=== PATIENT | male | born 1960 | race African-American/Black ===

== ENCOUNTER 2016-11-22 07:38 | Emergency (ER) | payer OTHER ==
[2016-11-22] MEDS ORDERED: NS 0.9% 1000 ML* 1,000 ML IV ONE (08:22)
[2016-11-22] MEDS ORDERED: Ondansetron INJ* 2 MG/ML VIAL IV ONE (08:22)
[2016-11-22] MEDS ORDERED: Morphine INJ* 4 MG/ML 1 ML CARPUJECT IV ONE (08:22)
[2016-11-22 08:41] LABS: Urine Bilirubin Negative (Negative); Urine Glucose Negative (Negative); Urine Nitrite Negative (Negative)
[2016-11-22 08:48] LABS: Hematocrit 40 % (42-52); Hemoglobin 13.3 g/dl (14.0-18.0); Mean Corpuscular HGB Conc 33 g/dl (31-36); Mean Corpuscular Hemoglobin 31 pg (27-31); Mean Corpuscular Volume 93 fL (80-94); Mean Platelet Volume 8 um3 (7.4-10.4); Red Blood Count 4.29 10^6/ul (4.0-5.4); Red Cell Distribution Width 14 % (10.5-15); White Blood Count 3.6 10^3/ul (3.5-10.8)
[2016-11-22 09:07] LABS: ALT 14 U/L (7-52); Albumin 3.8 g/dL (3.2-5.2); Alkaline Phosphatase 44 U/L (34-104); BUN/Creatinine Ratio 15.1 (8-20); Blood Urea Nitrogen 11 mg/dL (6-24); CO2 Carbon Dioxide 25 mmol/L (22-32); Calcium 8.8 mg/dL (8.6-10.3); Chloride 108 mmol/L (101-111); Globulin 2.5 g/dL (2-4); Glucose 100 mg/dL (70-100); Lipase 17 U/L (11.0-82.0); Sodium 136 mmol/L (133-145); Total Protein 6.3 g/dL (6.4-8.9)
[2016-11-22 09:13] LABS: Anion Gap 3 mmol/L (2-11)
--- NOTE | 2016-11-22 09:16 | RAD ---
Indication: Flank pain. CT of the abdomen and pelvis was performed without oral or IV contrast demonstration. Coronal and sagittal reconstructed images were obtained. Lung bases demonstrate no pleural fluid, nodules or masses. Heart demonstrates no pericardial effusion. Liver is normal in size. No focal lesions or intrahepatic ductal dilatation is noted. The gallbladder demonstrates no calcified gallstones. No pericholecystic fluid or wall thickening is identified. The spleen is normal in size. The pancreas demonstrates no mass or pancreatic duct dilatation. No adrenal lesions are noted. The kidneys demonstrate no hydronephrosis in either kidney. No dilated loops of bowel are noted. The retroperitoneal adenopathy is noted. CT of pelvis demonstrates diffuse wall thickening of the urinary bladder. No hernias are noted. Underlying urinary tract infection should be considered. IMPRESSION: No evidence of obstructive uropathy is noted. Diffuse wall thickening of the urinary bladder which is nonspecific.
[2016-11-22 11:09] VITALS: BP 129/91
--- NOTE | 2016-11-22 11:35 | ED ---
Selwyn Pelaez Angela, scribed for Fausto Lopez MD on 11/22/16 at 0815 . Back Pain - HPI Summary HPI Summary: This pt is a 56 y/o male presenting to [facility] c/o bilateral flank pain associated with hematuria and dysuria x1 week. Pt reports his pain is non- radiating and rates it 7 out of 10 in severity. He states his pain is now more constant and is aggravated when lifting things. Pt denies fever, chills. He denies a PMHx of kidney stones. Pt is a current smoker, cigars. 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 - History of Current Complaint Chief Complaint: EDFlankPain Stated Complaint: FLANK PAIN BOTH SIDES Time Seen by Provider: 11/22/16 08:01 Hx Obtained From: Patient Onset/Duration: Lasting Days Onset/Duration: Started Days Ago, Still Present Timing: Constant Back Pain Location: Is Discrete @ - bilateral flanks Pain Intensity: 7 Pain Scale Used: 0-10 Numeric Aggravating Symptom(s): Lifting Alleviating Symptom(s): Nothing Associated Signs And Symptoms: Positive: Flank Pain, Other - hematuria and dysuria - Allergies/Home Medications Allergies/Adverse Reactions: Allergies Allergy/AdvReac Type Severity Reaction Status Date / Time No Known Allergies Allergy Verified 11/22/16 10:33 Home Medications: Home Medications Albuterol HFA INHALER* [Ventolin HFA Inhaler*] 2 puff INH Q4H PRN 11/22/16 [ History Confirmed 11/22/16] PMH/Surg Hx/FS Hx/Imm Hx Endocrine/Hematology History: Denies: Hx Diabetes, Hx Thyroid Disease Cardiovascular History: Denies: Hx Hypertension Respiratory History: Reports: Hx Asthma Denies: Hx Chronic Obstructive Pulmonary Disease (COPD) GI History: Denies: Hx Ulcer Infectious Disease History: Denies: Hx Hepatitis, Hx Human Immunodeficiency Virus (HIV), Traveled Outside the [place] in Last 30 Days - Family History Known Family History: Positive: Other - Colon cancer - father - Social History Alcohol Use: None Substance Use Type: Reports: None Smoking Status (MU): Former Smoker Type: Cigarettes Have You Smoked in the Last Year: No Review of Systems Negative: Fever, Chills ENT: Negative Negative: Palpitations, Chest Pain Negative: Shortness Of Breath Negative: Abdominal Pain, Vomiting, Nausea Positive: dysuria, flank pain - bilateral, hematuria Musculoskeletal: Negative Skin: Negative Neurological: Negative All Other Systems Reviewed And Are Negative: Yes Physical Exam Triage Information Reviewed: Yes Vital Signs On Initial Exam: Initial Vitals Temp Pulse Resp BP Pulse Ox 97.3 F 65 15 126/79 98 11/22/16 07:40 11/22/16 07:40 11/22/16 07:40 11/22/16 07:40 11/22/16 07:40 Vital Signs Reviewed: Yes Appearance: Positive: Well-Appearing, No Pain Distress Skin: Positive: Warm, Skin Color Reflects Adequate Perfusion Head/Face: Positive: Normal Head/Face Inspection Eyes: Positive: EOMI ENT: Positive: Normal ENT inspection Neck: Positive: Nontender Respiratory/Lung Sounds: Positive: Clear to Auscultation, Breath Sounds Present Cardiovascular: Positive: RRR. Negative: Murmur Abdomen Description: Positive: Nontender Musculoskeletal: Positive: Normal, Strength/ROM Intact Neurological: Positive: Sensory/Motor Intact, Alert, Oriented to Person Place, Time, CN Intact II-III Psychiatric: Positive: Normal - Oanh Coma Scale Best Eye Response: 4 - Spontaneous Best Motor Response: 6 - Obeys Commands Best Verbal Response: 5 - Oriented Diagnostics - Vital Signs Vital Signs Temp Pulse Resp BP Pulse Ox 11/22/16 07:40 97.3 F 65 15 126/79 98 - Laboratory Lab Results: Lab Results 11/22/16 Range/Units 08:20 Urine Color Straw Urine Appearance Clear Urine pH 8.0 (5-9) Ur Specific [place] 1.005 L (1.010-1.030) Urine Protein Negative (Negative) Urine Ketones Negative (Negative) Urine Blood Negative (Negative) Urine Nitrate Negative (Negative) Urine Bilirubin Negative (Negative) Urine Urobilinogen Negative (Negative) Ur Leukocyte Esterase Negative (Negative) Urine Glucose Negative (Negative) Result Diagrams: 11/22/16 08:31 11/22/16 09:15 Lab Statement: Any lab studies that have been ordered have been reviewed, and results considered in the medical decision making process. - CT Abdomen/Pelvis CT CT Interpretation: No Acute Changes - IMPRESSION: No evidence of obstructive uropathy is noted. Diffuse wall thickening of the urinary bladder which is nonspecific. ED physician has reviewed this radiology report and agrees. CT Interpretation Completed By: Radiologist Back Pain Course/Dx - Course Assessment/Plan: Pt is a 56 y/o male presenting to [facility] c/o bilateral flank pain associated with hematuria and dysuria x1 week. In the ED course, pt was given IV fluids, morphine, and zofran. Abdomen/pelvis CT shows no evidence of obstructive uropathy. Diffuse wall thickening of the urinary bladder which is nonspecific. UA is negative. - Diagnoses Provider Diagnoses: Bladder wall thickening, Flank pain - Provider Notifications Discussed Care Of Patient With: Ej Forbes - MARCI Forbes and he will see patient in follow up in office. Time Discussed With Above Provider: 11:02 Discharge - Discharge Plan Condition: Good Disposition: HOME Patient Education Materials: Hematuria (ED) Referrals: Magi Coreas MD [Primary Care Provider] - Ej Forbes MD [Medical Doctor] - 2 Days The documentation as recorded by the Selwyn wilson Angela accurately reflects the service I personally performed and the decisions made by , Fausto Lopez MD.
== END 2016-11-22 11:11 | disposition home or self-care (01) ==
LOC: ED 07:38
DX: R10.9 Unspecified abdominal pain (principal); N32.9 Bladder disorder, unspecified; F17.299 Nicotine dependence, other tobacco product, with unspecified nicotine-induced disorders; J45.909 Unspecified asthma, uncomplicated
CPT/HCPCS: 36415; 74176; 80053; 81003; 83690; 85025; 96360; 96374; 96375; 99282; J2270; J2405

== ENCOUNTER 2017-01-31 18:45 | Emergency (ER) | payer OTHER ==
[2017-01-31 18:51] VITALS: BP 119/80
--- NOTE | 2017-01-31 19:08 | UC ---
Throat Pain/Nasal Scott HPI - HPI Summary HPI Summary: ST and cough starting about 3 days ago. Has also noticed wheezing and increased need for his inhaler. Girlfriend has similar symptoms. Denies fever. - History of Current Complaint Hx Obtained From: Patient Onset/Duration: Gradual Onset, Lasting Days Severity: Moderate Cough: Nonproductive Associated Signs & Symptoms: Positive: Wheezing. Negative: Nasal Discharge, Fever, Vomiting <Eliane Rothman - Last Filed: 01/31/17 19:03> <Feli Delaney - Last Filed: 01/31/17 19:30> - History of Current Complaint Chief Complaint: UCRespiratory Stated Complaint: THROAT PAIN Time Seen by Provider: 01/31/17 18:50 - Allergies/Home Medications Allergies/Adverse Reactions: Allergies Allergy/AdvReac Type Severity Reaction Status Date / Time No Known Allergies Allergy Verified 01/31/17 18:51 Home Medications: Home Medications Baclofen TAB* [Lioresal TAB*] 5 mg PO Q8H PRN 01/31/17 [History Confirmed ] Fluticasone Propionate (Inhala [Armonair Respiclick 55] 01/31/17 [History] LoraTADine TAB(NF) [Claritin 10 MG TAB(NF)] 10 mg PO DAILY 01/31/17 [History Confirmed 01/31/17] Oxycodone HCl 5 mg PO QID PRN 01/31/17 [History Confirmed 01/31/17] Sildenafil Citrate [Viagra] 100 mg PO 01/31/17 [History] PMH/Surg Hx/FS Hx/Imm Hx Respiratory History: Asthma - Surgical History Surgical History: Yes Surgery Procedure, Year, and Place: hemmoriodectomy - Family History Known Family History: Positive: Other - Colon cancer - father - Social History Lives: With Family Alcohol Use: Occasionally Substance Use Type: None Smoking Status (MU): Former Smoker Type: Cigarettes Have You Smoked in the Last Year: No <Eliane Rothman - Last Filed: 01/31/17 19:03> Review of Systems Constitutional: Negative Skin: Negative Eyes: Negative ENT: Sore Throat Respiratory: Cough Cardiovascular: Negative Gastrointestinal: Negative Genitourinary: Negative Motor: Negative Neurovascular: Negative Musculoskeletal: Negative Neurological: Negative Psychological: Negative Is Patient Immunocompromised?: No All Other Systems Reviewed And Are Negative: Yes <Eliane Rothman - Last Filed: 01/31/17 19:03> Physical Exam Triage Information Reviewed: Yes Appearance: Well-Appearing, No Pain Distress, Well-Nourished Vital Signs: Initial Vital Signs Temp 97.8 F 01/31/17 18:48 Pulse 73 01/31/17 18:48 Resp 16 01/31/17 18:48 BP 119/80 01/31/17 18:48 Pulse Ox 96 01/31/17 18:48 Vital Signs Reviewed: Yes Eye Exam: Normal Eyes: Positive: Conjunctiva Clear ENT: Positive: Pharynx normal, TMs normal. Negative: Nasal congestion, Nasal drainage, Tonsillar swelling, Tonsillar exudate Dental Exam: Other - poor dentition, missing most teeth Neck exam: Normal Neck: Positive: Supple, Nontender, No Lymphadenopathy Respiratory: Positive: No respiratory distress, Wheezing, Expiration Cardiovascular Exam: Normal Cardiovascular: Positive: RRR, No Murmur Musculoskeletal Exam: Normal Neurological Exam: Normal Psychological Exam: Normal Skin Exam: Normal <Eliane Rothman - Last Filed: 01/31/17 19:03> Vital Signs: Initial Vital Signs Temp 97.8 F 01/31/17 18:48 Pulse 73 01/31/17 18:48 Resp 16 01/31/17 18:48 BP 119/80 01/31/17 18:48 Pulse Ox 96 01/31/17 18:48 <Feli Delaney - Last Filed: 01/31/17 19:30> Diagnostics - Laboratory Diagnostic Studies Completed/Ordered: RST negative <Eliane Rothman - Last Filed: 01/31/17 19:03> Throat Pain/Nasal Course/Dx - Differential Dx/Diagnosis Provider Diagnoses: pharyngitis <Eliane Rothman - Last Filed: 01/31/17 19:03> Discharge <Eliane Rothman - Last Filed: 01/31/17 19:03> <Feli Delaney - Last Filed: 01/31/17 19:30> - Discharge Plan Condition: Stable Disposition: HOME Prescriptions: Lidocaine 2% VISCOUS* [Xylocaine 2% Viscous*] 15 ml SWISH SPIT Q6H PRN #20 btl PRN Reason: Sore Throat Naproxen Sodium [Naproxen Sodium 500 MG TAB] 500 mg PO BID #14 tab Patient Education Materials: Pharyngitis (ED) Forms: *Gen. Provider Communication Referrals: Evin Gauthier, DIRECTOR OF PHYSIOTHERAPY SERVICES [Primary Care Provider] - Additional Instructions: Rapid strep negative. Given your other symptoms, I strongly suspect a respiratory virus. In this case, you may have increase coughing for another several days, and it can be 2-3 weeks before symptoms are completely gone. Come back or see your primary care doctor if you developing worsening difficulty breathing. Attestation Statement User Type: Provider - I was available for consult. This patient was seen by the LYDIA. The patient was not presented to, seen by, or examined by me. -Olivia <Feli Delaney - Last Filed: 01/31/17 19:30>
== END 2017-01-31 19:25 | disposition home or self-care (01) ==
LOC: UCEAST 18:45
DX: J02.9 Acute pharyngitis, unspecified (principal); R05 Cough; J45.909 Unspecified asthma, uncomplicated; Z87.891 Personal history of nicotine dependence
CPT/HCPCS: 87651; 99212; G0463

== ENCOUNTER → 2018-07-14 19:28 | Emergency (ER) | payer OTHER ==
--- NOTE | 2018-07-14 19:38 | ED ---
Substance Abuse/Use - HPI Summary HPI Summary: This patient is a 57 year old male brought in by ambulance to [facility] with a chief complaint of possible overdose since 1 hour ago. Patient was found passed out in an alleyway and EMS was called. Patient was given 2 doses of Narcan nasally to no relief. During transit, EMS administered narcan again and patient regained consciousness. Patient states that all he had was a couple of beers and did not take any other drugs. Patient states that he had a stomachache before and after passing out. When patient was found, EMS states that he was severely diaphoretic. - History Of Current Complaint Chief Complaint: EDSubstanceAbuse Stated Complaint: OVERDOSE, UNRESPONSIVE PER EMS Time Seen by Provider: 07/14/18 19:29 Hx Obtained From: Patient Ingestion History: Type/Name Of Drug - EtOH Overdose Characteristics: Oral Timing Of Abuse: Binge Use Severity Initially: Severe Severity Currently: Mild Character: Stuporous Aggravating Factor(s): Nothing Alleviating Factor(s): Nothing Associated Signs And Symptoms: Other: - diaphoretic - Allergies/Home Medications Allergies/Adverse Reactions: Allergies Allergy/AdvReac Type Severity Reaction Status Date / Time No Known Allergies Allergy Verified 01/31/17 18:51 PMH/Surg Hx/FS Hx/Imm Hx Previously Healthy: No Endocrine/Hematology History: Denies: Hx Diabetes, Hx Thyroid Disease Cardiovascular History: Denies: Hx Hypertension Respiratory History: Reports: Hx Asthma Denies: Hx Chronic Obstructive Pulmonary Disease (COPD) GI History: Denies: Hx Ulcer History: Denies: Hx Renal Disease - Surgical History Surgery Procedure, Year, and Place: hemmoriodectomy Infectious Disease History: Denies: Hx Hepatitis, Hx Human Immunodeficiency Virus (HIV) - Family History Known Family History: Positive: Other - Colon cancer - father - Social History Lives: Alone Alcohol Use: Occasionally Hx Substance Use: No Substance Use Type: Reports: None Hx Tobacco Use: Yes Smoking Status (MU): Former Smoker Type: Cigarettes Have You Smoked in the Last Year: No Review of Systems Positive: Skin Diaphoresis. Negative: Fever Positive: Syncope All Other Systems Reviewed And Are Negative: Yes Physical Exam - Summary Physical Exam Summary: Appearance: Well-appearing, Well-nourished, lying in bed comfortably Skin: Warm, dry, no obvious rash Eyes: sclera anicteric, no conjunctival pallor ENT: mucous membranes moist, pharynx appears normal Neck: Supple, nontender Respiratory: Clear to auscultation, no signs of respiratory distress Cardiovascular: Normal S1, S2. No murmurs. Normal distal pulses in tibial and radial bilaterally. Abdomen: Soft, nontender, normal active bowel sounds present Musculoskeletal: Normal, Strength/ROM Intact Neurological: A&Ox3, awake and alert, mentation is normal, speech is fluent and appropriate Psychiatric: affect is normal, does not appear anxious or depressed Triage Information Reviewed: Yes Vital Signs Reviewed: Yes Diagnostics - Laboratory Result Diagrams: 07/14/18 20:02 07/14/18 20:02 Lab Statement: Any lab studies that have been ordered have been reviewed, and results considered in the medical decision making process. Re-Evaluation - Re-Evaluation First Eval Re-Evaluation Time: 21:27 Change: Unchanged - The patient is requesting discharge at this time. He doesn' t alcohol level of 142, but clinically he is ambulating without any ataxia, answering questions appropriately, and appears chronically sober enough for discharge. Course/Dx - Course Course Of Treatment: This is a 57-year-old man apparently with a past history of substance abuse as he has had prior toxicology results showing opioids and cocaine. He was found passed out with poor respiratory effort and an alleyway adjacent to a local restaurant. Nasal Narcan did not have any effect, but IV Narcan resulted in improvement in his mental status. Patient continues to deny using any substances other than alcohol. He will be observed in the emergency department for an hour or 2 and anticipate discharge. We will get toxicology screening as he refuses to admit to opioid use, as well as alcohol level. Bloodwork Obtained. Urinalysis Obtained. Patient will be discharged with a dx of alcohol intoxication and opioid overdose. Patient is advised to follow up with PCP in 3 days. The patient is agreeable with this plan. - Diagnoses Provider Diagnoses: Alcohol intoxication, Opioid overdose Discharge - Sign-Out/Discharge Documenting (check all that apply): Patient Departure Patient Received Moderate/Deep Sedation with Procedure: No - Discharge Plan Condition: Good Disposition: HOME Patient Education Materials: Narcotic Safety (ED), Abuse of Alcohol (ED), Polysubstance Abuse (ED) Referrals: Evin Gauthier NP [Primary Care Provider] - [facility] [Outside] - Billing Disposition and Condition Condition: GOOD Disposition: Home - Attestation Statements Document Initiated by Radha: Yes Documenting Scribe: Jai Pfeiffer Provider For Whom Radha is Documenting (Include Credential): Emmanuel Day MD Scribguadalupe Attestation: Jai Pelaez scribed for Emmanuel Day MD on 07/15/18 at 0607. Scribe Documentation Reviewed: Yes Provider Attestation: The documentation as recorded by the Jai wilson accurately reflects the service I personally performed and the decisions made by meEmmanuel MD Status of Scribe Document: Viewed
[2018-07-14 20:09] LABS: ABS Eosinophils 0.2 10^3/ul (0-0.6); ABS Lymphocytes 1.4 10^3/ul (1.0-4.8); ABS Monocytes 0.6 10^3/ul (0-0.8); ABS Neutrophils 2.4 10^3/ul (1.5-7.7); Eosinophil % 3.5 %; Hematocrit 39 % (42-52); Hemoglobin 12.6 g/dL (14.0-18.0); Lymphocyte % 29.8 %; Mean Corpuscular HGB Conc 32 g/dL (31-36); Mean Corpuscular Hemoglobin 30 pg (27-31); Mean Corpuscular Volume 93 fL (80-94); Mean Platelet Volume 7.8 fL (7.4-10.4); Platelet Count 214 10^3/uL (150-450); Red Blood Count 4.18 10^6 /uL (4.18-5.48); Red Cell Distribution Width 13 % (10.5-15); White Blood Count 4.7 10^3/uL (3.5-10.8)
[2018-07-14 20:25] LABS: Albumin 4.2 g/dL (3.2-5.2); Albumin/Globulin Ratio 1.6 (1-3); BUN/Creatinine Ratio 8.3 (8-20); Calcium 8.9 mg/dL (8.6-10.3); EGFR African American 76.1 (>60); EGFR Non-African American 62.9 (>60); Globulin 2.6 g/dL (2-4); Potassium 3.7 mmol/L (3.5-5.0); Total Bilirubin 0.5 mg/dL (0.2-1.0); Total Protein 6.8 g/dL (6.4-8.9)
[2018-07-14 21:11] VITALS: BP 111/70
== END | disposition home or self-care (01) ==
LOC: ED 19:28
DX: F10.129 Alcohol abuse with intoxication, unspecified (principal); T40.2X1A Poisoning by other opioids, accidental (unintentional), initial encounter; T40.5X1A Poisoning by cocaine, accidental (unintentional), initial encounter; R55 Syncope and collapse; R61 Generalized hyperhidrosis; Y92.89 Other specified places as the place of occurrence of the external cause; J45.909 Unspecified asthma, uncomplicated; Z87.891 Personal history of nicotine dependence
CPT/HCPCS: 36415; 80053; 80320; 85025; 99282; G0480

== ENCOUNTER 2018-12-06 10:14 | Emergency (ER) | payer OTHER ==
[2018-12-06] MEDS ORDERED: NS 0.9% 1000 ML** 1,000 ML IV ONE (10:25)
[2018-12-06 10:52] LABS: ABS Monocytes 0.5 10^3/ul (0-0.8); ABS Neutrophils 4.9 10^3/ul (1.5-7.7); Eosinophil % 0.6 %; Hematocrit 39 % (42-52); Hemoglobin 12.8 g/dL (14.0-18.0); Lymphocyte % 15.3 %; Mean Corpuscular HGB Conc 33 g/dL (31-36); Mean Corpuscular Hemoglobin 31 pg (27-31); Mean Corpuscular Volume 94 fL (80-94); Mean Platelet Volume 7.5 fL (7.4-10.4); Platelet Count 245 10^3/uL (150-450); Red Cell Distribution Width 14 % (10-15); White Blood Count 6.5 10^3/uL (3.5-10.8)
[2018-12-06 10:57] LABS: Urine Appearance Clear; Urine Bacteria Absent (Absent); Urine Bilirubin Negative (Negative); Urine Blood 1+ (Negative); Urine Color Yellow; Urine Glucose Negative (Negative); Urine Ketones Trace (Negative); Urine Nitrite Negative (Negative); Urine Protein 1+(30 mg/dL) (Negative); Urine Red Blood Cell 3+(>10/hpf) (Absent); Urine Specific Gravity 1.026 (1.010-1.030); Urine Urobilinogen Negative (Negative); Urine White Blood Cell Trace(0-5/hpf) (Absent)
--- NOTE | 2018-12-06 11:01 | ED ---
GI/ HPI - HPI Summary HPI Summary: This patient is a 58 year old M arriving via ambulance from [facility] to [facility] a chief complaint of hematuria, left scrotal mass that is increasing in size and pain at the site of the mass, for several days to weeks, worsening today. Patient states that he has had a mass on left testicle since 01/30 which has since gotten worse. Patient states that today at 0900 he had new symptoms of hematuria at 0900, however he has had hematuria in the past evaluated by [facility] several years ago with no pathology identified. Patient states that he was worried with the new symptoms. The patient rates the pain 5/10 in severity. Pt has no PMH of renal calculi. Pt has past surgical hx of hemorrhoidectomy. Pt declines pain medication at this time. Symptoms aggravated by nothing. Symptoms alleviated by nothing. Patient reports hematuria , frequency, dysuria, burning with urination. Patient states his last BM was on 12/05/18. Patient denies nausea, vomiting, abdominal pain, hematemesis, hematochezia but he does have specks of blood in his stool "when he strains". Patient has history of heroin use. Patient states that he does not inject heroin. Patient states that he "sniffs" heroin. Pt states last heroin use was two days ago. Patient reports EtOH use and tobacco use. Pt is listed as taking Augmentin, however he has not taken a dose of this, as this was prescribed by [facility], and then pt was transferred to the ED. Last po intake was 12/05/18 pm. Pt was maintained NPO in the [facility]. Vital signs while in room: HR 75 bpm, BP 147/88, O2 sat 98% Allergies Allergy/AdvReac Type Severity Reaction Status Date / Time No Known Allergies Allergy Verified 01/31/17 18:51 Home Medications Medication Instructions Recorded Confirmed Type Amoxicillin/Clavulanate TAB* 875 mg PO Q12HR 12/06/18 12/06/18 History [Augmentin TAB 875*] - History of Current Complaint Chief Complaint: EDUrogenitalProblems Stated Complaint: TESTICULAR PAIN PER EMS Hx Obtained From: Patient, Other: - [facility] urgent care Onset/Duration: Started Days Ago, Still Present, Worse Since - today Timing: Constant Severity: Moderate Current Severity: Moderate Pain Intensity: 5 Additional Locations for Males: Scrotum - left, Testicles - left Pain Characteristics: Other: - "irritated" Pain Radiates to: Back - lumbar Associated Signs and Symptoms: Positive: Back Pain - lower back pain, Blood w/ Stool - specks, Hematuria, Dysuria, Other: - scrotal mass. Negative: Nausea Aggravating Factor(s): Nothing Alleviating Factor(s): Nothing - Allergy/Home Medications Allergies/Adverse Reactions: Allergies Allergy/AdvReac Type Severity Reaction Status Date / Time No Known Allergies Allergy Verified 01/31/17 18:51 Home Medications: Home Medications Amoxicillin/Clavulanate TAB* [Augmentin TAB 875*] 875 mg PO Q12HR 12/06/18 [ History Confirmed 12/06/18] PMH/Surg Hx/FS Hx/Imm Hx Previously Healthy: No Endocrine/Hematology History: Denies: Hx Diabetes, Hx Thyroid Disease Cardiovascular History: Denies: Hx Hypertension Respiratory History: Reports: Hx Asthma Denies: Hx Chronic Obstructive Pulmonary Disease (COPD) GI History: Denies: Hx Ulcer History: Denies: Hx Renal Disease - Surgical History Surgical History: Yes Surgery Procedure, Year, and Place: hemorrhoidectomy Infectious Disease History: No Infectious Disease History: Denies: Hx Hepatitis, Hx Human Immunodeficiency Virus (HIV), Traveled Outside the [place] in Last 30 Days - Family History Known Family History: Positive: Other - Colon cancer - father - Social History Alcohol Use: hx ETOH abuse Hx Substance Use: Yes Substance Use Type: Reports: Heroin - denies injection Substance Use Comment - Amount & Last Used: Pt denies Hx Tobacco Use: Yes Smoking Status (MU): Light Every Day Tobacco Smoker Type: Cigarettes Have You Smoked in the Last Year: No Review of Systems Negative: Fever, Chills, Skin Diaphoresis Cardiovascular: Negative Respiratory: Negative Positive: Other - occasional blood with stool, with straining. . Negative: Abdominal Pain, Vomiting, Nausea Positive: burning - with urination , dysuria, frequency, hematuria, pain - with urination Positive: Other - lower back pain Skin: Negative Neurological: Negative Psychological: Normal - no evidence of intoxication in the ED today All Other Systems Reviewed And Are Negative: Yes Physical Exam - Summary Physical Exam Summary: Appearance: well-appearing, moderate pain distress, well-nourished, no evidence of intoxication Skin: Warm, color reflects adequate perfusion, dry, no evidence of injection site on scrotum or in groin, and no track abreu on extremities, Scrotal mass see below Head: Normal Head/Face inspection, atraumatic Eyes: Conjunctiva clear ENT: Normal inspection Neck: Supple, no nodes, no JVD Respiratory: Lungs clear, normal breath sounds, no respiratory distress Cardio: RRR, No murmur, pulses normal, brisk capillary refill Abdomen: Soft, nontender, no masses, nondistended, no guarding, no rebound Bowel sounds: Present Musculoskeletal: Strength Intact/ROM intact, no calf tenderness, no edema. Psychological: Normal Neuro: Alert, muscle tone normal, no focal deficit GI/: Mass 5 cm in diameter and firm at top (base) of left scrotum, no fluctuance; mass is not red, or hot; no swelling of the scrotum, no masses palpable on testicles, 2+ femoral pulses bilaterally, exam chaperoned by Suzy from ultrasound Triage Information Reviewed: Yes Vital Signs On Initial Exam: Initial Vitals Temp Pulse Resp BP Pulse Ox 98.4 F 75 16 147/88 98 12/06/18 10:15 12/06/18 10:15 12/06/18 10:15 12/06/18 10:15 12/06/18 10:15 Vital Signs Reviewed: Yes Diagnostics - Vital Signs Vital Signs Temp Pulse Resp BP Pulse Ox 12/06/18 10:15 98.4 F 75 16 147/88 98 - Laboratory Lab Results: Lab Results 12/06/18 Range/Units 10:40 WBC 6.5 (3.5-10.8) 10^3/uL RBC 4.10 L (4.18-5.48) 10^6 /uL Hgb 12.8 L (14.0-18.0) g/dL Hct 39 L (42-52) % MCV 94 (80-94) fL MCH 31 (27-31) pg MCHC 33 (31-36) g/dL RDW 14 (10-15) % Plt Count 245 (150-450) 10^3/uL MPV 7.5 (7.4-10.4) fL Neut % (Auto) 75.5 % Lymph % (Auto) 15.3 % [place] % (Auto) 7.9 % Eos % (Auto) 0.6 % Baso % (Auto) 0.7 % Absolute Neuts (auto) 4.9 (1.5-7.7) 10^3/ul Absolute Lymphs (auto) 1.0 (1.0-4.8) 10^3/ul Absolute Monos (auto) 0.5 (0-0.8) 10^3/ul Absolute Eos (auto) 0.0 (0-0.6) 10^3/ul Absolute Basos (auto) 0.0 (0-0.2) 10^3/ul Absolute Nucleated RBC 0.0 10^3/ul Nucleated RBC % 0.0 Result Diagrams: 12/06/18 10:40 12/06/18 10:40 Lab Statement: Any lab studies that have been ordered have been reviewed, and results considered in the medical decision making process. - Ultrasound Testicular US Ultrasound Interpretation Completed By: Radiologist Summary of Ultrasound Findings: Testicular US reveals, per radiologist, IMPRESSION: Multiloculated cystic lesion in the area of the palpable mass at the base of the scrotum suspicious for abscess and infection. No intratesticular masses are noted. ED Physician has reviewed this report. Re-Evaluation - Re-Evaluation First Eval Re-Evaluation Time: 12:20 Change: Unchanged Comment: Dr. Mayo discussed plans with patient. Remains looking comfortable. Patient states his pain is still a 3 or 4 and continues decline pain medication. Patient is advised of transfer as well as antiobotics to be infused. Patient is agreeable with this plan. Second Eval Re-Evaluation Time: 14:15 Change: Worse Comment: Pt c/o increased pain. Would like pain medication at this time. Will continue to avoid narcotics. Will give ketorolac 30mg IV x 1. GIGU Course/Dx - Course Course Of Treatment: This patient is a 58 year old M arriving via ambulance from [facility] to [facility] a chief complaint of mass in his "testicle" that is enlarging in size and more painful for the past few days, worse today and hematuria. Patient states that he has had a mass on left testicle since 11/22 which has since gotten worse. Pt is afebrile, with no signs of sepsis. Testicular US reveals, per radiologist, IMPRESSION: Multiloculated cystic lesion in the area of the palpable mass at the base of the scrotum suspicious for abscess and infection. No intratesticular masses are noted. ED Physician has reviewed this report. Pt with hx heroin abuse but with no evidence of injection near or at the site of scrotal mass, and no sign of intoxication in the ED at this time. 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 Patient will be transferred. Pt was given Clindamycin 900mg IV x 1 in the ED. He has no known hx of MRSA. He has been maintained NPO in the ED. Last po intake was 12/05/18 pm. Pt will be transferred via EMS with IV in place with NS at 200ml/hr. The patient is agreeable with this plan. - Diagnoses Differential Diagnoses - Male: Cancer, Neoplasm, Testicular Torsion, Other - abscess Provider Diagnoses: Scrotal mass, Hematuria, Heroin abuse - Critical Care Time Critical Care Time: 30-74 min - 30 mins Discharge ED - Sign-Out/Discharge Documenting (check all that apply): Patient Departure - transfer to facility with urology Patient Received Moderate/Deep Sedation with Procedure: No - Discharge Plan Condition: Stable Disposition: TRANS HIGHER LVL OF CARE FAC Referrals: Evin Gauthier NP [Primary Care Provider] - - Billing Disposition and Condition Condition: STABLE Disposition: Trans Higher Lvl of Care Fac - Attestation Statements Document Initiated by Scribe: Yes Documenting Scribe: Dionna Vazquez Provider For Whom Juddibe is Documenting (Include Credential): Dr. Carolyn Mayo MD Scribe Attestation: Dionna Pelaez scribed for Dr. Carolyn Mayo MD on 12/06/18 at 1417. Scribe Documentation Reviewed: Yes Provider Attestation: The documentation as recorded by the Dionna wilson accurately reflects the service I personally performed and the decisions made by me, Dr. Carolyn Mayo MD Status of Scribe Document: Viewed
[2018-12-06 11:06] LABS: ALT 13 U/L (7-52); AST 22 U/L (13-39); Albumin 4.4 g/dL (3.2-5.2); Albumin/Globulin Ratio 1.6 (1-3); Alkaline Phosphatase 63 U/L (34-104); Anion Gap 6 mmol/L (2-11); BUN/Creatinine Ratio 16.9 (8-20); Blood Urea Nitrogen 14 mg/dL (6-24); C Reactive Protein < 1.00 mg/L (<8.01); CO2 Carbon Dioxide 29 mmol/L (22-32); Calcium 9.6 mg/dL (8.6-10.3); Chloride 106 mmol/L (101-111); EGFR Non-African American 95.8 (>60); Globulin 2.8 g/dL (2-4); Glucose 115 mg/dL (70-100); Potassium 3.9 mmol/L (3.5-5.0); Sodium 141 mmol/L (135-145); Total Protein 7.2 g/dL (6.4-8.9)
[2018-12-06] MEDS ORDERED: Clindamycin 900 MG IVPREMIX(* 900 MG/50 ML SDV IV ONE (12:21)
[2018-12-06 14:14] VITALS: BP 147/97
[2018-12-06] MEDS ORDERED: Ketorolac INJ* 30 MG/ML 1 ML VIAL IV ONE (14:16)
== END 2018-12-06 14:53 | disposition short-term general hospital (02) ==
LOC: ED 10:14
DX: N50.89 Other specified disorders of the male genital organs (principal); R31.9 Hematuria, unspecified; R30.0 Dysuria; R35.0 Frequency of micturition; M54.5 Low back pain; F11.10 Opioid abuse, uncomplicated; F17.210 Nicotine dependence, cigarettes, uncomplicated
CPT/HCPCS: 36415; 76870; 80053; 81003; 81015; 83605; 85025; 86140; 87086; 96361; 96374; 99283; J1885

== ENCOUNTER 2018-12-19 19:06 | Emergency (ER) | payer OTHER ==
[2018-12-19 20:56] LABS: ABS Basophils 0.1 10^3/ul (0-0.2); ABS Eosinophils 0.1 10^3/ul (0-0.6); ABS Lymphocytes 1.8 10^3/ul (1.0-4.8); ABS Monocytes 0.6 10^3/ul (0-0.8); ABS Neutrophils 2.1 10^3/ul (1.5-7.7); Hematocrit 38 % (42-52); Hemoglobin 12.5 g/dL (14.0-18.0); Lymphocyte % 38.1 %; Mean Corpuscular HGB Conc 33 g/dL (31-36); Mean Corpuscular Hemoglobin 31 pg (27-31); Mean Corpuscular Volume 95 fL (80-94); Mean Platelet Volume 7.6 fL (7.4-10.4); Platelet Count 220 10^3/uL (150-450); Red Blood Count 3.98 10^6 /uL (4.18-5.48); Red Cell Distribution Width 14 % (10-15); White Blood Count 4.7 10^3/uL (3.5-10.8)
[2018-12-19 21:16] LABS: ALT 14 U/L (7-52); AST 28 U/L (13-39); Albumin 4.2 g/dL (3.2-5.2); Albumin/Globulin Ratio 1.8 (1-3); Alkaline Phosphatase 60 U/L (34-104); Anion Gap 3 mmol/L (2-11); BUN/Creatinine Ratio 12.2 (8-20); Blood Urea Nitrogen 12 mg/dL (6-24); C Reactive Protein < 1.00 mg/L (<8.01); CO2 Carbon Dioxide 33 mmol/L (22-32); Calcium 9.3 mg/dL (8.6-10.3); Chloride 105 mmol/L (101-111); EGFR African American 95.7 (>60); EGFR Non-African American 79.1 (>60); Globulin 2.4 g/dL (2-4); Glucose 85 mg/dL (70-100); Potassium 4.5 mmol/L (3.5-5.0); Sodium 141 mmol/L (135-145); Total Protein 6.6 g/dL (6.4-8.9)
--- OUTSIDE RECORDS SUMMARY | 2018-12-19 21:25 | XMS REPORT | Continuity of Care Document ---
:1960 External Reference #:[id number] Author Name Christian Naik M.D. 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 Onset: 03/2018 Digestive symptom Jordan Pfeiffer MD Onset: 01/12/2017 Abdominal pain Jordan Pfeiffer MD Onset: 01/12/2017 Social History Type Date Description Comments Sex Unknown Smokeless Tobacco Never Used Smokeless Tobacco ETOH Use Denies alcohol use Recreational Drug Use Denies Drug Use Tobacco Use Start: Unknown Light tobacco smoker (10 or fewer cigarettes/day) Smoking Status Reviewed: 12/12/18 Light tobacco smoker (10 or fewer cigarettes/day) Allergies, Adverse Reactions, Alerts Description No Known Drug Allergies Medications Active Medications SIG Qnty Indications Ordering Date Provider Endocet every 4 to 6 14tabs Gumaro, 12/12/2018 5-325mg Tablets hours as needed Jillian Gonzales for pain Vaseline Petrolatum as needed 1units Gumaro, 12/12/2018 Jeremiah Gonzales M.D. 1"X36" Pads Omeprazole 1 tab by mouth 90caps R10.9 Jordan Pfeiffer MD 01/12/[address] every day every morning Oxycodone HCL 1 tab by Unknown 5mg Capsules mouthevery 4-6 hour as needed postop pain Cyclobenzaprine HCL 1-2 tabs by mouth Unknown 5mg every night at Tablets bedtime Baclofen 1 tab by mouth Unknown 10mg Tablets three times a day spasm Immunizations Description No Information Available Vital Signs Date Vital Result Comment 12/12/2018 11:22am BP Systolic 130 mmHg BP Diastolic 84 mmHg Body Temperature 98.7 F Heart Rate 82 /min Respiratory Rate 16 /min Height 68 inches 5'8" Weight 143.00 lb BMI (Body Mass Index) 21.7 kg/m2 BSA (Body Surface Area) 1.77 m2 [place] body weight in kilograms 70 kg O2 % BldC Oximetry 97 % Pain Level 0 01/12/2017 2:26pm BP Systolic Sitting Left Arm 120 mmHg BP Diastolic Sitting Left Arm 82 mmHg Heart Rate 97 /min Respiratory Rate 16 /min Height 68 inches 5'8" Weight 141.00 lb BMI (Body Mass Index) 21.4 kg/m2 BSA (Body Surface Area) 1.76 m2 [place] body weight in kilograms 70 kg Results Description No Information Available Procedures Description No Information Available Medical Devices Description No Information Available Encounters Type Date Location Provider Dx Diagnosis Office Visit 12/12/2018 Urology Christian Naik N49.2 Inflammatory disorders 11:15a MAimee of scrotum Assessments Date Code Description Provider 12/12/2018 N49.2 Inflammatory disorders of scrotum Christian Naik M.D. Plan of Treatment Future Appointment(s):12/28/2018 10:30 am - Christian Naik M.D. at [id number] - Christian Naik M.D.N49.2 Inflammatory disorders of scrotumComments: Patient status post I&D of a left scrotal abscess. This appears to be healing well. Patient tocontinue with packing twice a day. I will give him some Vicodin. He is to follow-up with me in 1-2weeks for reassessment. Functional Status Description No Information Available Mental Status Description No Information Available Referrals Description No Information Available
[2018-12-19] MEDS: Iohexol 300* (CONTRAST) 10 ML SDV IV ONE (21:55)
--- NOTE | 2018-12-20 00:02 | ED ---
Abdominal Pain/Male - HPI Summary HPI Summary: Patient complains of ongoing lower abdominal pain radiating to groin status post scrotal abscess. Pain described as intermittent. Patient was seen here at [facility] for scrotal abscess on with I&D. Patient has been taking Augmentin since. Patient had follow-up with urology on 12/12 in [place]. Denies any other pain, injury or symptoms. Medical history is none. Abdominal surgical history is none. - History of Current Complaint Chief Complaint: EDAbdPain Stated Complaint: ABDOMINAL PAIN PER EMS Time Seen by Provider: 12/19/18 20:20 Hx Obtained From: Patient Onset/Duration: Gradual Onset, Lasting Weeks Timing: Intermittent, Lasting Minutes Severity Initially: Severe Severity Currently: Severe Pain Intensity: 8 Pain Scale Used: 0-10 Numeric Location: Discrete At: RLQ, Discrete At: LLQ, Suprapubic, Groin Radiates: No Character: Dull Alleviating Factor(s): Nothing Associated Signs And Symptoms: Positive: Negative - Allergies/Home Medications Allergies/Adverse Reactions: Allergies Allergy/AdvReac Type Severity Reaction Status Date / Time No Known Allergies Allergy Verified 12/07/18 17:10 Home Medications: Home Medications NK [No Home Medications Reported] 12/19/18 [History Confirmed 12/19/18] PMH/Surg Hx/FS Hx/Imm Hx Endocrine/Hematology History: Denies: Hx Diabetes, Hx Thyroid Disease Cardiovascular History: Denies: Hx Hypertension Respiratory History: Reports: Hx Asthma Denies: Hx Chronic Obstructive Pulmonary Disease (COPD) GI History: Denies: Hx Ulcer History: Denies: Hx Renal Disease Sensory History: Denies: Hx Eye Prosthesis Opthamlomology History: Denies: Hx Legally Blind EENT History: Denies: Hx Deafness Neurological History: Denies: Hx Dementia - Surgical History Surgery Procedure, Year, and Place: hemorrhoidectomy Infectious Disease History: No Infectious Disease History: Denies: Hx Hepatitis, Hx Human Immunodeficiency Virus (HIV), Traveled Outside the [place] in Last 30 Days - Family History Known Family History: Positive: Other - Colon cancer - father - Social History Alcohol Use: None Hx Substance Use: Yes Substance Use Type: Reports: None Substance Use Comment - Amount & Last Used: Pt denies Hx Tobacco Use: Yes Smoking Status (MU): Light Every Day Tobacco Smoker Type: Cigarettes Have You Smoked in the Last Year: No Review of Systems Constitutional: Negative Eyes: Negative ENT: Negative Cardiovascular: Negative Respiratory: Negative Positive: Abdominal Pain Genitourinary: Negative Musculoskeletal: Negative Skin: Negative Neurological: Negative Psychological: Normal All Other Systems Reviewed And Are Negative: Yes Physical Exam - Summary Physical Exam Summary: Normal exam of genitalia. Some mild induration at area of prior abscess. No tenderness with palpation of scrotum or testicles. Abdomen soft nontender. Normal exam of tissues lateral and posterior to testicles. Triage Information Reviewed: Yes Vital Signs On Initial Exam: Initial Vitals Temp Pulse Resp BP Pulse Ox 98.4 F 72 16 118/73 99 12/19/18 19:16 12/19/18 19:16 12/19/18 19:16 12/19/18 19:16 12/19/18 19:16 Vital Signs Reviewed: Yes Appearance: Positive: Well-Appearing Skin: Positive: Warm Head/Face: Positive: Normal Head/Face Inspection Eyes: Positive: Normal Neck: Positive: Supple Respiratory/Lung Sounds: Positive: Clear to Auscultation Cardiovascular: Positive: Normal Abdomen Description: Positive: Nontender Male Genital Exam: Positive: Normal Genitalia Musculoskeletal: Positive: Normal Neurological: Positive: Normal Psychiatric: Positive: Normal AVPU Assessment: Alert - [place] Coma Scale Best Eye Response: 4 - Spontaneous Best Motor Response: 6 - Obeys Commands Best Verbal Response: 5 - Oriented Coma Scale Total: 15 Procedures - Sedation Patient Received Moderate/Deep Sedation with Procedure: No Diagnostics - Vital Signs Vital Signs Temp Pulse Resp BP Pulse Ox 12/19/18 22:46 125/84 12/19/18 22:16 131/91 12/19/18 20:46 136/88 12/19/18 20:15 121/82 12/19/18 20:11 133/77 12/19/18 19:16 98.4 F 72 16 118/73 99 - Laboratory Lab Results: Lab Results 12/19/18 12/19/18 12/19/18 Range/Units 20:50 20:50 20:50 WBC 4.7 (3.5-10.8) 10^3/uL RBC 3.98 L (4.18-5.48) 10^6 /uL Hgb 12.5 L (14.0-18.0) g/dL Hct 38 L (42-52) % MCV 95 H (80-94) fL MCH 31 (27-31) pg MCHC 33 (31-36) g/dL RDW 14 (10-15) % Plt Count 220 (150-450) 10^3/uL MPV 7.6 (7.4-10.4) fL Neut % (Auto) 45.5 % Lymph % (Auto) 38.1 % [place] % (Auto) 12.2 % Eos % (Auto) 3.0 % Baso % (Auto) 1.2 % Absolute Neuts (auto) 2.1 (1.5-7.7) 10^3/ul Absolute Lymphs (auto) 1.8 (1.0-4.8) 10^3/ul Absolute Monos (auto) 0.6 (0-0.8) 10^3/ul Absolute Eos (auto) 0.1 (0-0.6) 10^3/ul Absolute Basos (auto) 0.1 (0-0.2) 10^3/ul Absolute Nucleated RBC 0.0 10^3/ul Nucleated RBC % 0.0 Sodium 141 (135-145) mmol/L Potassium 4.5 (3.5-5.0) mmol/L Chloride 105 (101-111) mmol/L Carbon Dioxide 33 H (22-32) mmol/L Anion Gap 3 (2-11) mmol/L BUN 12 (6-24) mg/dL Creatinine 0.98 (0.67-1.17) mg/dL Est GFR ( Amer) 95.7 (>60) Est GFR (Non-Af Amer) 79.1 (>60) BUN/Creatinine Ratio 12.2 (8-20) Glucose 85 (70-100) mg/dL Lactic Acid 0.5 (0.5-2.0) mmol/L Calcium 9.3 (8.6-10.3) mg/dL Total Bilirubin 0.90 (0.2-1.0) mg/dL AST 28 (13-39) U/L ALT 14 (7-52) U/L Alkaline Phosphatase 60 (34-104) U/L C-Reactive Protein < 1.00 (<8.01) mg/L Total Protein 6.6 (6.4-8.9) g/dL Albumin 4.2 (3.2-5.2) g/dL Globulin 2.4 (2-4) g/dL Albumin/Globulin Ratio 1.8 (1-3) Result Diagrams: 12/19/18 20:50 12/19/18 20:50 Lab Statement: Any lab studies that have been ordered have been reviewed, and results considered in the medical decision making process. Abdominal Pain Male Course/Dx - Course Course Of Treatment: Patient complains of ongoing lower abdominal pain radiating to groin status post scrotal abscess. Pain described as intermittent. Patient was seen here at [facility] for scrotal abscess on with I& D. Patient has been taking Augmentin since. Patient had follow-up with urology on 12/12 in [place]. Denies any other pain, injury or symptoms. Medical history is none. Abdominal surgical history is none. Vital signs within normal limits. Labs within normal limits. CT abdomen and pelvis negative. - Diagnoses Provider Diagnoses: Intermittent lower abdominal pain Discharge ED - Sign-Out/Discharge Documenting (check all that apply): Patient Departure - Discharge Plan Condition: Stable Disposition: HOME Patient Education Materials: Acute Abdominal Pain (ED) Forms: *Work Release Referrals: Evin Gauthier NP [Primary Care Provider] - Additional Instructions: Alternate ibuprofen 600 mg with Tylenol 650 mg for pain. Follow-up with your urologist to make sure abscess heals completely. - Billing Disposition and Condition Condition: STABLE Disposition: Home - Attestation Statements Provider Attestation: I was available for consult. This patient was seen by the [facility]. The patient was not presented to, seen by, or examined by me. Artis Lund MD
[2018-12-20 00:28] VITALS: BP 135/86
== END 2018-12-20 00:28 | disposition home or self-care (01) ==
LOC: ED 19:06
DX: R10.30 Lower abdominal pain, unspecified (principal); F17.210 Nicotine dependence, cigarettes, uncomplicated
CPT/HCPCS: 36415; 74177; 80053; 83605; 85025; 86140; 99283; Q9967

== ENCOUNTER 2019-01-24 08:01 | Emergency (ER) | payer OTHER ==
--- OUTSIDE RECORDS SUMMARY | 2019-01-24 08:29 | XMS REPORT | Continuity of Care Document ---
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 Onset: 2013 inhibited libido Malaise and fatigue Magi Coreas M.D. 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 Onset: 2013 Social History Type Date Description Comments Sex Unknown ETOH Use Denies alcohol use Tobacco Use Start: Unknown End: Patient is a former Quit in his 30s; Unknown smoker less than a pack a day for a few years Recreational Drug Use Former Drug User previou heroin use Smoking Status Reviewed: 01/10/19 Patient is a former Quit in his 30s; smoker less than a pack a day for a few years Exercise Type/Frequency Exercises regularly Exercise Type/Frequency lifting weight Allergies, Adverse Reactions, Alerts Description No Known Drug Allergies Medications Active Medications SIG Qnty Indications Ordering Provider Date Proair HFA 1-2 puffs by 8.500gm Evin Gauthier NP 07/08/2016 108(90Base) mouth every 4-6 mcg/Act Aerosol hours as needed Viagra take one tablet 4tabs N52.9 Evin Gauthier NP 06/16/2016 100mg Tablets at least 30 mintues prior to intercourse. Oxycodone-Acetaminoph Christian Naik, en M.D. 5-325mg Tablets Trazodone HCL Unknown 50mg Tablets Citalopram Unknown Hydrobromide 10mg Tablets Immunizations CPT Code Status Date Vaccine Lot # [id number] Refused 12/25/2013 Influenza Virus Vaccine, Quadrivalent, Split, Preservative Free Vital Signs Date Vital Result Comment 01/10/2019 2:44pm Height 68 inches 5'8" Weight 146.38 lb Heart Rate 64 /min BP Systolic 123 mmHg BP Diastolic 72 mmHg Body Temperature 97.9 F O2 % BldC Oximetry 94 % BMI (Body Mass Index) 22.3 kg/m2 12/27/2016 2:51pm Heart Rate 74 /min BP Systolic Sitting 154 mmHg BP Diastolic Sitting 98 mmHg Pain Level 8 back O2 % BldC Oximetry 98 % Results Test Acquired Date Facility Test Result H/L Range Note Ua Routine 01/10/2019 [facility] Ua Specific [place] 1.030 Ua PH 5 Ua Color cassy Ua Appera cloudy Ua WBC negative Ua Protein negative Ua Glucose normal Ua Ketones negative Ua Bilirubin negative Ua Urobilinogen normal Ua Nitrite negative Ua Occult Blood about 250 Comp Metabolic 12/19/2018 [facility] Sodium 141 mmol/L Normal 135-[address] [place] [address] [phone] Potassium 4.5 mmol/L Normal 3.5-5.0 Chloride 105 mmol/L Normal 101-111 Co2 Carbon Dioxide 33 mmol/L High 22-32 Anion Gap 3 mmol/L Normal 2-11 Glucose 85 mg/dL Normal 70-100 Blood Urea Nitrogen 12 mg/dL Normal 6-24 Creatinine 0.98 mg/dL Normal 0.67-1.17 BUN/Creatinine Ratio 12.2 Normal 8-20 Calcium 9.3 mg/dL Normal 8.6-10.3 Total Protein 6.6 g/dL Normal 6.4-8.9 Albumin 4.2 g/dL Normal 3.2-5.2 Globulin 2.4 g/dL Normal 2-4 Albumin/Globulin Ratio 1.8 Normal 1-3 Total Bilirubin 0.90 mg/dL Normal 0.2-1.0 Alkaline Phosphatase 60 U/L Normal 34-104 Alt 14 U/L Normal 7-52 Ast 28 U/L Normal 13-39 Egfr Non- 79.1 >60 Egfr 95.7 >60 1 Laboratory test 12/19/2018 [facility] C Reactive < 1.00 Normal <8.[address] Protein mg/L [place], [place] [id number] [phone] CBC Auto Diff 12/19/2018 [facility] White Blood 4.7 Normal 3.5 -10.[address] Count 10^3/[place] [address] [phone] Red Blood Count 3.98 10^6/uL Low 4.18-5.48 Hemoglobin 12.5 g/dL Low 14.0-18.0 Hematocrit 38 % Low 42-52 Mean Corpuscular Volume 95 fL High 80-94 Mean Corpuscular Hemoglobin 31 pg Normal 27-31 Mean Corpuscular HGB Conc 33 g/dL Normal 31-36 Red Cell Distribution Width 14 % Normal 10-15 Platelet Count 220 10^3/uL Normal 150-450 Mean Platelet Volume 7.6 fL Normal 7.4-10.4 Abs Neutrophils 2.1 10^3/uL Normal 1.5-7.7 Abs Lymphocytes 1.8 10^3/uL Normal 1.0-4.8 Abs Monocytes 0.6 10^3/uL Normal 0-0.8 Abs Eosinophils 0.1 10^3/uL Normal 0-0.6 Abs Basophils 0.1 10^3/uL Normal 0-0.2 Abs Nucleated RBC 0.0 10^3/uL Granulocyte % 45.5 % Lymphocyte % 38.1 % Monocyte % 12.2 % Eosinophil % 3.0 % Basophil % 1.2 % Nucleated Red Blood Cells % 0.0 Laboratory test 12/19/2018 [facility] Lactic Acid 0.5 mmol/L Normal 0.5-2.0 2 finding [address] [place] [address] [phone] Comp Metabolic 12/06/2018 [facility] Sodium 141 mmol/L Normal 135-145 Panel [address] [place] [address] [phone] Potassium 3.9 mmol/L Normal 3.5-5.0 Chloride 106 mmol/L Normal 101-111 Co2 Carbon Dioxide 29 mmol/L Normal 22-32 Anion Gap 6 mmol/L Normal 2-11 Glucose 115 mg/dL High 70-100 Blood Urea Nitrogen 14 mg/dL Normal 6-24 Creatinine 0.83 mg/dL Normal 0.67-1.17 BUN/Creatinine Ratio 16.9 Normal 8-20 Calcium 9.6 mg/dL Normal 8.6-10.3 Total Protein 7.2 g/dL Normal 6.4-8.9 Albumin 4.4 g/dL Normal 3.2-5.2 Globulin 2.8 g/dL Normal 2-4 Albumin/Globulin Ratio 1.6 Normal 1-3 Total Bilirubin 0.80 mg/dL Normal 0.2-1.0 Alkaline Phosphatase 63 U/L Normal 34-104 Alt 13 U/L Normal 7-52 Ast 22 U/L Normal 13-39 Egfr Non- 95.8 >60 Egfr 116.0 >60 3 Laboratory test 12/06/2018 [facility] C Reactive < 1.00 Normal <8.[address] Protein mg/[place] [address] [phone] CBC Auto Diff 12/06/2018 [facility] White Blood 6.5 Normal 3.5 -10.[address] Count 10^3/[place] [address] [phone] Red Blood Count 4.10 10^6/uL Low 4.18-5.48 Hemoglobin 12.8 g/dL Low 14.0-18.0 Hematocrit 39 % Low 42-52 Mean Corpuscular Volume 94 fL Normal 80-94 Mean Corpuscular Hemoglobin 31 pg Normal 27-31 Mean Corpuscular HGB Conc 33 g/dL Normal 31-36 Red Cell Distribution Width 14 % Normal 10-15 Platelet Count 245 10^3/uL Normal 150-450 Mean Platelet Volume 7.5 fL Normal 7.4-10.4 Abs Neutrophils 4.9 10^3/uL Normal 1.5-7.7 Abs Lymphocytes 1.0 10^3/uL Normal 1.0-4.8 Abs Monocytes 0.5 10^3/uL Normal 0-0.8 Abs Eosinophils 0.0 10^3/uL Normal 0-0.6 Abs Basophils 0.0 10^3/uL Normal 0-0.2 Abs Nucleated RBC 0.0 10^3/uL Granulocyte % 75.5 % Lymphocyte % 15.3 % Monocyte % 7.9 % Eosinophil % 0.6 % Basophil % 0.7 % Nucleated Red Blood Cells % 0.0 Laboratory test 12/06/2018 [facility] Lactic Acid 0.6 mmol/L Normal 0.5-2.0 [address] [place] [address] [phone] Urinalysis 12/06/2018 [facility] Urine Color Yellow Profile [address] [place] [address] [phone] Urine Appearance Clear Urine Specific [place] 1.026 Normal 1.010-1.030 Urine pH 6.0 Normal 5-9 Urine Urobilinogen Negative Negative Urine Ketones Trace Abnormal Negative Urine Protein 1+(30 mg/dL) Abnormal Negative Urine Leukocytes Negative Negative Urine Blood 1+ Abnormal Negative * * Abnormal Negative 5 Urine Nitrite Negative Negative Urine Bilirubin Negative Negative Urine Glucose Negative Negative Urine White Blood Cell Trace(0-5/hpf) Absent Urine Red Blood Cell 3+(>10/hpf) Abnormal Absent Urine Bacteria Absent Absent Urine Yeast Present Abnormal Absent Urine Culture And 12/06/2018 [facility] Urine SEE RESULT [address] [place] [address] [phone] CBC Auto Diff 07/14/2018 [facility] White Blood 4.7 10^3/uL Normal 3.5-[address] Count 0.8 [place] [address] [phone] Red Blood Count 4.18 10^6/uL Normal 4.18-5.48 Hemoglobin 12.6 g/dL Low 14.0-18.0 Hematocrit 39 % Low 42-52 Mean Corpuscular Volume 93 fL Normal 80-94 Mean Corpuscular Hemoglobin 30 pg Normal 27-31 Mean Corpuscular HGB Conc 32 g/dL Normal 31-36 Red Cell Distribution Width 13 % Normal 10.5-15 Platelet Count 214 10^3/uL Normal 150-450 Mean Platelet Volume 7.8 fL Normal 7.4-10.4 Abs Neutrophils 2.4 10^3/uL Normal 1.5-7.7 Abs Lymphocytes 1.4 10^3/uL Normal 1.0-4.8 Abs Monocytes 0.6 10^3/uL Normal 0-0.8 Abs Eosinophils 0.2 10^3/uL Normal 0-0.6 Abs Basophils 0.0 10^3/uL Normal 0-0.2 Abs Nucleated RBC 0.0 10^3/uL Granulocyte % 52.4 % Lymphocyte % 29.8 % Monocyte % 13.5 % Eosinophil % 3.5 % Basophil % 0.8 % Nucleated Red Blood Cells % 0.0 Comp Metabolic 07/14/2018 [facility] Sodium 141 mmol/L Normal 135-145 Panel [address] [place] [address] [phone] Potassium 3.7 mmol/L Normal 3.5-5.0 Chloride 107 mmol/L Normal 101-111 Co2 Carbon Dioxide 27 mmol/L Normal 22-32 Anion Gap 7 mmol/L Normal 2-11 Glucose 129 mg/dL High 70-100 Blood Urea Nitrogen 10 mg/dL Normal 6-24 Creatinine 1.20 mg/dL High 0.67-1.17 BUN/Creatinine Ratio 8.3 Normal 8-20 Calcium 8.9 mg/dL Normal 8.6-10.3 Total Protein 6.8 g/dL Normal 6.4-8.9 Albumin 4.2 g/dL Normal 3.2-5.2 Globulin 2.6 g/dL Normal 2-4 Albumin/Globulin Ratio 1.6 Normal 1-3 Total Bilirubin 0.50 mg/dL Normal 0.2-1.0 Alkaline Phosphatase 47 U/L Normal 34-104 Alt 42 U/L Normal 7-52 Ast 80 U/L High 13-39 Egfr Non- 62.9 >60 Egfr 76.1 >60 7 Laboratory test finding 07/14/2018 [facility] Alcohol 142 mg/dL High <10 [address] [place] [address] [phone] 1 Because ethnic data is not always readily available, this report includes an eGFR for both -Americans and non- Americans. The National Kidney Disease Education Program (NKDEP) does not endorse the use of the MDRD equation for patients that are not between the ages of 18 and 70, are , have extremes of body size, muscle mass, or nutritional status, or are non- or non-. According to the National Kidney Foundation, irrespective of diagnosis, the stage of the disease is based on the level of kidney function: Stage Description GFR(mL/min/1.73 m(2)) 1 Kidney damage with normal or decreased GFR 90 2 Kidney damage with mild decrease in GFR 60-89 3 Moderate decrease in GFR 30-59 4 Severe decrease in GFR 15-29 5 Kidney failure <15 (or dialysis) 2 [facility] Severe Sepsis and Septic Shock Management Bundle Measure requires all lactic acids initially measuring >2.0 mmol/L be repeated. 3 Because ethnic data is not always readily available, this report includes an eGFR for both -Americans and non- Americans. The National Kidney Disease Education Program (NKDEP) does not endorse the use of the MDRD equation for patients that are not between the ages of 18 and 70, are , have extremes of body size, muscle mass, or nutritional status, or are non- or non-. According to the National Kidney Foundation, irrespective of diagnosis, the stage of the disease is based on the level of kidney function: Stage Description GFR(mL/min/1.73 m(2)) 1 Kidney damage with normal or decreased GFR 90 2 Kidney damage with mild decrease in GFR 60-89 3 Moderate decrease in GFR 30-59 4 Severe decrease in GFR 15-29 5 Kidney failure <15 (or dialysis) 4 [facility] Severe Sepsis and Septic Shock Management Bundle Measure requires all lactic acids initially measuring >2.0 mmol/L be repeated. 5 *Ascorbic acid is present which may interfere with detection of blood. 6 SEE RESULT BELOW Name: NAMAN ENG : [address]: Carolyn Mayo MD Acct: [id number] Unit: [id number] AGE: 58 Location: ED Re12/06/18 SEX: M Status: DEP ER SPEC: [id number] SEVERINO: 12/06/[address]: Carolyn Mayo MD REQ: [id number] RECD: 12/06/18 STATUS: [facility] DR: Evin Gauthier DOUGH BRAKER _ SOURCE: URINE SPDESC: ORDERED: Urine Culture Procedure Result Reported Site Urine Culture Final 12/07/18- 0845 ML No Growth (<1,000 CFU/mL) * ML - Main Lab . END OF REPORT DEPARTMENT OF PATHOLOGY, [address] [place] [address] Crow Bullock M.D. Director [facility] # [id number] 7 Because ethnic data is not always readily available, this report includes an eGFR for both -Americans and non- Americans. The National Kidney Disease Education Program (NKDEP) does not endorse the use of the MDRD equation for patients that are not between the ages of 18 and 70, are , have extremes of body size, muscle mass, or nutritional status, or are non- or non-. According to the National Kidney Foundation, irrespective of diagnosis, the stage of the disease is based on the level of kidney function: Stage Description GFR(mL/min/1.73 m(2)) 1 Kidney damage with normal or decreased GFR 90 2 Kidney damage with mild decrease in GFR 60-89 3 Moderate decrease in GFR 30-59 4 Severe decrease in GFR 15-29 5 Kidney failure <15 (or dialysis) Procedures Date Code Description Status 11/06/2014 [id number] Colonoscopy Completed Medical Devices Description No Information Available Encounters Description No Information Available Assessments Date Code Description Provider 01/10/2019 L02.214 Cutaneous abscess of groin Evin Gauthier NP 01/10/2019 R31.9 Hematuria, unspecified Evin Gauthier NP Plan of Treatment 01/10/2019 - Evin Gauthier NPL02.214 Cutaneous abscess of groinComments:Continue to monitor the area and if there is no further improvement I can refer you to the wound clinic.R31.9 Hematuria, unspecifiedComments:It is important to make a follow up appointment with Dr. Naik. I will complete the transportation form. Functional Status Description No Information Available Mental Status Description No Information Available Referrals Description No Information Available
--- NOTE | 2019-01-24 08:41 | ED ---
"GI/ HPI - HPI Summary HPI Summary: Pt is a 58 y/o M presenting to the ED with a chief complaint of GI/ issues initially onset about 3 weeks ago, worsening since then. Pt was seen by the urologist, Dr. Naik in [place]. Pt had an appt early December. he was given Oxycodone for pain which helped. Pt was scheduled for a bladder scope on 01/02 but missed the appt related to transportation issue. Pt states he has an appt tomorrow with planned transport. Pt states he couldn't control his pain (did not take APAP or ibuprofen) so came here. Pt denies fever, chills. no nausea, vomiting. He denies any trauma to the area. Prior to arrival, pt took his normal bladder medication as well as Xanax. no anticoagulation Patient's medications reviewed this visit. - History of Current Complaint Chief Complaint: EDFlankPain Time Seen by Provider: 01/24/19 08:14 Stated Complaint: LOW BACK PAIN/BLOODY STOOLS PER PT Hx Obtained From: Patient, Medical Records [place] Dec [place] [facility] [place]/Duration: Started Weeks Ago, Still Present Timing: Constant, Lasting Weeks Severity: Moderate Current Severity: Severe Pain Intensity: 8 Location of Pain: Suprapubic Associated Signs and Symptoms: Positive: Abdominal Pain, Other: - incontinence bowels and urine Aggravating Factor(s): Nothing Alleviating Factor(s): Medication - Allergy/Home Medications Allergies/Adverse Reactions: Allergies Allergy/AdvReac Type Severity Reaction Status Date / Time No Known Allergies Allergy Verified 01/24/19 08:10 Home Medications: Home Medications Citalopram TAB* [CeleXA TAB*] 10 mg PO DAILY 01/24/19 [History Confirmed ] traZODone TAB* [Desyrel TAB*] 50 mg PO BEDTIME 01/24/19 [History Confirmed 01/24] PMH/Surg Hx/FS Hx/Imm Hx Previously Healthy: Yes Endocrine/Hematology History: Denies: Hx Anticoagulant Therapy, Hx Diabetes, Hx Thyroid Disease Cardiovascular History: Denies: Hx Hypertension Respiratory History: Reports: Hx Asthma Denies: Hx Chronic Obstructive Pulmonary Disease (COPD) GI History: Denies: Hx Ulcer History: Reports: Other Problems/Disorders - hematuria, kidney pain Denies: Hx Renal Disease Sensory History: Denies: Hx Eye Prosthesis, Hx Legally Blind, Hx Deafness Opthamlomology History: Denies: Hx Eye Prosthesis, Hx Legally Blind Neurological History: Denies: Hx Dementia Psychiatric History: Reports: Hx Substance Abuse - Surgical History Surgery Procedure, Year, and Place: hemorrhoidectomy Infectious Disease History: No Infectious Disease History: Denies: Hx Hepatitis, Hx Human Immunodeficiency Virus (HIV), Traveled Outside the [place] in Last 30 Days - Family History Known Family History: Positive: Other - Colon cancer - father - Social History Occupation: Unemployed Lives: Dormitory/Roommates - recovery house Alcohol Use: None Alcohol Amount: sober for 15mo's Hx Substance Use: Yes Substance Use Type: Reports: None Substance Use Comment - Amount & Last Used: Pt denies Hx Tobacco Use: Yes Smoking Status (MU): Current Every Day Smoker Type: Cigarettes Have You Smoked in the Last Year: No Review of Systems Constitutional: Negative Eyes: Negative ENT: Negative Positive: Other - kidney pain Positive: incontinence All Other Systems Reviewed And Are Negative: Yes Physical Exam - Summary Physical Exam Summary: Vital Signs Reviewed: Yes A+Ox3, no distress Eyes: Conjunctiva Clear, LENNY. EOM intact and full ENT: Hearing grossly normal TM x 2 clear, mmoist, uvula midline, no exudate, no erythema Neck: Positive: Supple Respiratory: Positive: No respiratory distress, No accessory muscle use + CTA throughout no w/r Cardiovascular: RRR nl s1, s2 no m/r CBT <2 sec abd soft + BS nt/nd no guarding, no distension Musculoskeletal Exam: CASAS x 4 without difficulty Strength Intact, ROM Intact Neurological: Positive: Alert, + sensation throughout Psychological: Positive: Normal Response To examiner Skin: Positive: no rash, no ecchymosis Triage Information Reviewed: Yes Vital Signs On Initial Exam: Initial Vitals Temp Pulse Resp BP Pulse Ox 99.5 F 79 18 111/72 96 01/24/19 08:06 01/24/19 08:06 01/24/19 08:06 01/24/19 08:06 01/24/19 08:06 Vital Signs Reviewed: Yes Procedures - Sedation Patient Received Moderate/Deep Sedation with Procedure: No Diagnostics - Vital Signs Vital Signs Temp Pulse Resp BP Pulse Ox 01/24/19 08:06 99.5 F 79 18 111/72 96 - Laboratory Result Diagrams: 01/24/19 08:47 01/24/19 08:47 Lab Statement: Any lab studies that have been ordered have been reviewed, and results considered in the medical decision making process. - Ultrasound Bladder/Abd US Ultrasound Interpretation Completed By: Radiologist Summary of Ultrasound Findings: Normal renal ultrasound. Prostate as described. ED physician has reviewed this report. Re-Evaluation - Re-Evaluation 1st re-eval Re-Evaluation Time: 10:00 Change: Unchanged Comment: I spoke with the pt and reviewed his hx of Suboxone Rx d/t opiate abuse hx. Pt states that it is a misinterpretation of his Suboxone use and denies hx of heroin or opiate dependence. Also states his parole sent him to detox. reviewed labs. awaiting ultrasound. if u/s unremarkable will likely discharge with anagesia until tomorrow 2nd re-eval Re-Evaluation Time: 11:12 Change: Improved Comment: I informed pt of his US results. He is stable and agreeable to discharge. will see urology tomorrow as scheduled. reviewed with pt must f/u with urology and pcp GIGU Course/Dx - Course Course Of Treatment: Patient presents to urgent care requesting pain control. Patient with an ongoing history of hematuria and reported kidney pain. Patient' s followed by urologist in [place]. Patient does have an appointment there tomorrow. Patient states he's been having some incontinence but this is been ongoing. Patient states his most have a scope 3 weeks ago but had transportation issues so he has arranged for tomorrow. Patient states he was on oxycodone that was helping his pain. . On exam vital signs are stable. Patient well-appearing in no distress. Will check urine last given IV fluid and 1 dose of oxycodone here. Also renal ultrasound as patient had an unremarkable CT scan in December. Patient states,. Pt in agreement with plan. The patient would give prescription for oxycodone to tomorrow when he sees his urologist. Feli Delaney | Reference #: [id number] reviewed istop - pt had been prescribed suboxone 11/12/18 - percocet Dr. Naik 12/12 - will d/w pt - Diagnoses Provider Diagnoses: Microscopic hematuria, Flank pain Discharge ED - Sign-Out/Discharge Documenting (check all that apply): Patient Departure - Discharge Plan Condition: Stable Disposition: HOME Prescriptions: Oxycodone HCl/Acetaminophen [Percocet 5-325 mg Tablet] 1 each PO Q6HR #4 tablet MDD 4 Patient Education Materials: Hematuria (ED) Referrals: Evin Gauthier, [employer] OPERATOR [Primary Care Provider] - Additional Instructions: -stay well hydrated. Drink plenty of non-alcoholic, non-caffinated beverages -Okay to take Tylenol or percocet as prescribed. do not drive, operate machinerym or drink alcohol while taking percocet. do NOT Take Trazadone if you have taken percocet - it may cause excess drowsiness - It is very important you keep you appointment tomorrow as scheduled at your [place]rolog[place]. Contact your urologist with questions or concerns - Billing Disposition and Condition Condition: STABLE Disposition: Home - Attestation Statements Document Initiated by Scribe: Yes Documenting Scribe: Kailee Nuñez Provider For Whom Scribe is Documenting (Include Credential): Feli Delaney MD. Scribe Attestation: Kailee Pelaez, scribed for Feli Delaney MD. on 01/24/19 at 1119. Scribe Documentation Reviewed: Yes Provider Attestation: The documentation as recorded by the [email or web address] accurately reflects the service I personally performed and the decisions made by , Feli Delaney MD. Status of Scribe Document: Viewed"
[2019-01-24] MEDS ORDERED: NS 0.9% 1000 ML** 1,000 ML IV ONE (08:42)
[2019-01-24] MEDS ORDERED: oxyCODONE/Acetamin 5/325 MG* TAB PO ONE (08:42)
[2019-01-24 08:55] LABS: ABS Basophils 0.1 10^3/ul (0-0.2); ABS Eosinophils 0.3 10^3/ul (0-0.6); ABS Lymphocytes 2.1 10^3/ul (1.0-4.8); ABS Neutrophils 3.3 10^3/ul (1.5-7.7); Eosinophil % 4.6 %; Hematocrit 37 % (42-52); Hemoglobin 12.5 g/dL (14.0-18.0); Lymphocyte % 30.9 %; Mean Corpuscular HGB Conc 34 g/dL (31-36); Mean Corpuscular Hemoglobin 32 pg (27-31); Mean Corpuscular Volume 93 fL (80-94); Platelet Count 256 10^3/uL (150-450); Red Blood Count 3.96 10^6 /uL (4.18-5.48); Red Cell Distribution Width 13 % (10-15); White Blood Count 6.8 10^3/uL (3.5-10.8)
[2019-01-24 09:03] LABS: Urine Appearance Cloudy; Urine Bacteria Absent (Absent); Urine Bilirubin Negative (Negative); Urine Blood 1+ (Negative); Urine Color Yellow; Urine Glucose Negative (Negative); Urine Ketones Trace (Negative); Urine Nitrite Negative (Negative); Urine Protein Negative (Negative); Urine Red Blood Cell 1+(3-5/hpf) (Absent); Urine Specific Gravity 1.026 (1.010-1.030); Urine Squamous Epithelial Cell Present (Absent); Urine Urobilinogen Negative (Negative); Urine White Blood Cell Trace(0-5/hpf) (Absent)
[2019-01-24 09:11] LABS: Albumin 4.3 g/dL (3.2-5.2); Albumin/Globulin Ratio 1.7 (1-3); BUN/Creatinine Ratio 13.9 (8-20); Calcium 9.6 mg/dL (8.6-10.3); EGFR African American 79.6 (>60); EGFR Non-African American 65.8 (>60); Globulin 2.6 g/dL (2-4); Magnesium 2.3 mg/dL (1.9-2.7); Potassium 4.1 mmol/L (3.5-5.0); Total Bilirubin 0.7 mg/dL (0.2-1.0); Total Protein 6.9 g/dL (6.4-8.9)
[2019-01-24 10:27] VITALS: BP 131/86
== END 2019-01-24 11:42 | disposition home or self-care (01) ==
LOC: ED 08:01
DX: R31.29 Other microscopic hematuria (principal); M54.5 Low back pain; Z87.891 Personal history of nicotine dependence
CPT/HCPCS: 36415; 76770; 80053; 81003; 81015; 83735; 85025; 87086; 96360; 99283; A9270-GY

== ENCOUNTER 2019-03-05 11:30 | Emergency (ER) | payer OTHER ==
--- OUTSIDE RECORDS SUMMARY | 2019-03-05 11:42 | XMS REPORT | Continuity of Care Document ---
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 01/25/2019 for pain Vaseline Petrolatum as needed 1units Christian Naik, 12/12/2018 - Gauze M.D. 01/25/2019 1"X36" Pads Immunizations Description No Information Available Vital Signs Date Vital Result Comment 01/25/2019 2:01pm BP Systolic 145 mmHg BP Diastolic 82 mmHg Body Temperature 97.3 F Heart Rate 66 /min Respiratory Rate 18 /min Height 68 inches 5'8" Weight 144.50 lb BMI (Body Mass Index) 22.0 kg/m2 BSA (Body Surface Area) 1.78 m2 [place] body weight in kilograms 70 kg O2 % BldC Oximetry 94 % Pain Level 8 Bladder / Kidney pain 12/12/2018 11:22am BP Systolic 130 mmHg BP Diastolic 84 mmHg Body Temperature 98.7 F Heart Rate 82 /min Respiratory Rate 16 /min Height 68 inches 5'8" Weight 143.00 lb BMI (Body Mass Index) 21.7 kg/m2 BSA (Body Surface Area) 1.77 m2 [place] body weight in kilograms 70 kg O2 % BldC Oximetry 97 % Pain Level 0 Results Test Acquired Date Facility Test Result H/L Range Note Ua RFX Micro & 01/25/2019 [facility] Urine Color Light-Yellow Yellow 1 Culture II [address] [place] [address] [phone] Urine Clarity Clear Clear Urine Glucose - Dipstick NEGATIVE mg/dL Negative Urine Bilirubin - Dipstick NEGATIVE Negative Urine Ketone NEGATIVE mg/dL Negative Urine Specific Arab 1.022 Normal 1.010-1.030 Urine Blood SMALL Abnormal Negative Urine PH 6.5 Normal 6.5-7.5 Urine Protein - Dipstick NEGATIVE mg/dL Negative Urine Urobilinogen - Dipstick < 2.0 mg/dL < 2.0 Urine Nitrite - Dipstick NEGATIVE Negative Urine Leuk Esterase TRACE Abnormal Negative Urine RBC 6-10 rbc/hpf 0-2 Urine WBC 0-2 wbc/hpf 0-5 Urine Epithelial Cells FEW /lpf None Seen Urine Mucus SMALL None Seen Urine Dipstick 01/25/2019 [facility] Ua Color Yellow Yellow Ua Clarity Clear Clear Ua Leuko Negative Negative Ua Nitrite Negative Negative Ua Urobilinogen 0.2 0.2 - 1.0 E.U./dL Ua Protein Negative Negative Ua PH 6.0 Low 6.5-7.5 Ua Blood 25 High Negative Ua Specific Arab 1.020 1.010-1.030 Ua Ketones Negative Negative Ua Bilirubin Negative Negative Ua Glucose Negative Negative 1 R31.21 Procedures Description No Information Available Medical Devices Description No Information Available Encounters Type Date Location Provider Dx Diagnosis Office Visit 12/12/2018 Urology Christian Naik, N49.2 Inflammatory disorders 11:15a Jillian of scrotum Z71.6 Tobacco abuse counseling Assessments Date Code Description Provider 01/25/2019 N49.2 Inflammatory disorders of scrotum Delvin Ochoa PA 01/25/2019 R31.21 Asymptomatic microscopic hematuria Delvin Ochoa PA 12/12/2018 N49.2 Inflammatory disorders of scrotum Christian Naik M.D. 12/12/2018 Z71.6 Tobacco abuse counseling Christian Naik M.D. Plan of Treatment Future Appointment(s):02/15/2019 10:45 am - Christian Naik M.D. at [email or web address] - Delvin Ochoa, PAN49.2 Inflammatory disorders of scrotumComments: Resolution of his abscess. Be mindful of hygiene and recurrence.R31.21 Asymptomatic microscopic hematuriaNew Labs:Basic Metabolic Panel, Ordered: 01/25New Xrays:CT, Abdomen & Pelvis,W & W/O Contrast, Ordered: Comments:Today's urinalysis dips positive and sent for microscopy and culture. We did this because smoking cessation. He'll have a CT of the abdomen and pelvis performed and return for cystoscopy if appropriate appointments are scheduled and he's made aware of the importance of keeping these and he should make arrangements early for the Medicaid cab to get him here Functional Status Description No Information Available Mental Status Description No Information Available Referrals Description No Information Available
[2019-03-05 12:24] LABS: ABS Eosinophils 0.2 10^3/ul (0-0.6); ABS Lymphocytes 1.2 10^3/ul (1.0-4.8); ABS Monocytes 0.7 10^3/ul (0-0.8); ABS Neutrophils 2.7 10^3/ul (1.5-7.7); Eosinophil % 4.6 %; Hematocrit 37 % (42-52); Hemoglobin 12.3 g/dL (14.0-18.0); Lymphocyte % 24.9 %; Mean Corpuscular HGB Conc 33 g/dL (31-36); Mean Corpuscular Hemoglobin 31 pg (27-31); Mean Corpuscular Volume 94 fL (80-94); Mean Platelet Volume 7.5 fL (7.4-10.4); Nucleated Red Blood Cells % 0.1; Platelet Count 226 10^3/uL (150-450); Red Blood Count 3.98 10^6 /uL (4.18-5.48); Red Cell Distribution Width 13 % (10-15); White Blood Count 4.9 10^3/uL (3.5-10.8)
--- NOTE | 2019-03-05 12:27 | ED ---
Abdominal Pain/Male - HPI Summary HPI Summary: 58 year old M arriving via private car complains of worsening bilateral flank pain, frequency and urgency with urination, abdominal bloating, abdominal soreness, and back pain x2 months. No fecal dysfunction or fever. Yesterday , patient developed stiffness in his left leg which has since resolved. No numbness or weakness BLE or perineal area. Also yesterday 03/04, patient had sudden onset spasm in his back and near syncope. Patient diaphoretic last night which has since resolved. Symptoms rated 8/10 in severity. Symptoms aggravated by nothing. Symptoms alleviated by nothing. Recent bladder infection 3 weeks ago for which he was taking course of antibiotics which he finished. Has been seeing urology in [place]. Had bladder ultrasound 01/24/19 that was unremarkable. Had Abd/Pel CT 12/19/18 which showed edema of right inguinal region and penis. Had scrotal abscess 11/2018. No hx IV drug use. Hx heroin use. No previous hx back problems. - History of Current Complaint Chief Complaint: EDFlankPain Stated Complaint: KIDNEY PAIN BOTH SIDES Time Seen by Provider: 03/05/19 11:53 Hx Obtained From: Patient, Medical Records Onset/Duration: Still Present, Other - 2 months Timing: Constant Severity Currently: Severe Pain Intensity: 8 Pain Scale Used: 0-10 Numeric Location: Flank - bilateral Aggravating Factor(s): Nothing Alleviating Factor(s): Nothing - Allergies/Home Medications Allergies/Adverse Reactions: Allergies Allergy/AdvReac Type Severity Reaction Status Date / Time No Known Allergies Allergy Verified 03/05/19 11:38 PMH/Surg Hx/FS Hx/Imm Hx Endocrine/Hematology History: Denies: Hx Anticoagulant Therapy, Hx Diabetes, Hx Thyroid Disease Cardiovascular History: Denies: Hx Hypertension Respiratory History: Reports: Hx Asthma Denies: Hx Chronic Obstructive Pulmonary Disease (COPD) GI History: Denies: Hx Ulcer History: Reports: Other Problems/Disorders - hematuria, kidney pain Denies: Hx Renal Disease Sensory History: Denies: Hx Eye Prosthesis, Hx Legally Blind, Hx Deafness Opthamlomology History: Denies: Hx Eye Prosthesis, Hx Legally Blind Neurological History: Denies: Hx Dementia Psychiatric History: Reports: Hx Substance Abuse - Surgical History Surgery Procedure, Year, and Place: hemorrhoidectomy Infectious Disease History: No Infectious Disease History: Denies: Hx Hepatitis, Hx Human Immunodeficiency Virus (HIV), Traveled Outside the [place] in Last 30 Days - Family History Known Family History: Positive: Other - Colon cancer - father - Social History Alcohol Use: Rare Alcohol Amount: sober for 15mo's Hx Substance Use: Yes Substance Use Type: Reports: Heroin Hx Tobacco Use: Yes Smoking Status (MU): Current Some Day Smoker Type: Cigarettes Have You Smoked in the Last Year: No Review of Systems Negative: Fever Gastrointestinal: Negative - fecal dysfunction Positive: Other - abdominal bloating, abdominal soreness Positive: frequency, flank pain - bilateral, urgency Positive: Other - back pain Positive: Syncope - near. Negative: Weakness, Numbness All Other Systems Reviewed And Are Negative: Yes Physical Exam - Summary Physical Exam Summary: Constitutional: Well-developed, Well-nourished, Alert. (-) Distressed Skin: Warm, Dry HENT: Normocephalic; Atraumatic Eyes: Conjunctiva normal Neck: Musculoskeletal ROM normal neck. (-) JVD, (-) Stridor, (-) Nuchal rigidity Back: Lumbar and paraspinal lumbar tenderness Cardio: Rhythm regular, rate normal, Heart sounds normal; Intact distal pulses; Radial pulses are 2+ and symmetric. (-) Murmur Pulmonary/Chest wall: Effort normal. (-) Respiratory distress, (-) Wheezes, (-) Rales Abd: Soft, suprapubic tenderness, (-) Distension, (-) Guarding, (-) Rebound and rectal exam chaperoned by Bjorn tatum RN: He has an old I&D incision to left scrotum. Denies saddle anesthesia. Musculoskeletal: bilateral flank pain, no midline TL tenderness. Lymph: (-) Cervical adenopathy Neuro: Alert, Oriented x3 Psych: Mood and affect Normal Triage Information Reviewed: Yes Vital Signs On Initial Exam: Initial Vitals Temp Pulse Resp BP Pulse Ox 98.3 F 76 18 139/79 96 03/05/19 11:33 03/05/19 11:33 03/05/19 11:33 03/05/19 11:33 03/05/19 11:33 Vital Signs Reviewed: Yes Procedures - Sedation Patient Received Moderate/Deep Sedation with Procedure: No Diagnostics - Vital Signs Vital Signs Temp Pulse Resp BP Pulse Ox 03/05/19 11:33 98.3 F 76 18 139/79 96 - Laboratory Lab Results: Lab Results 03/05/19 Range/Units 12:12 WBC 4.9 (3.5-10.8) 10^3/uL RBC 3.98 L (4.18-5.48) 10^6 /uL Hgb 12.3 L (14.0-18.0) g/dL Hct 37 L (42-52) % MCV 94 (80-94) fL MCH 31 (27-31) pg MCHC 33 (31-36) g/dL RDW 13 (10-15) % Plt Count 226 (150-450) 10^3/uL MPV 7.5 (7.4-10.4) fL Neut % (Auto) 56.2 % Lymph % (Auto) 24.9 % Clarke % (Auto) 13.5 % Eos % (Auto) 4.6 % Baso % (Auto) 0.8 % Absolute Neuts (auto) 2.7 (1.5-7.7) 10^3/ul Absolute Lymphs (auto) 1.2 (1.0-4.8) 10^3/ul Absolute Monos (auto) 0.7 (0-0.8) 10^3/ul Absolute Eos (auto) 0.2 (0-0.6) 10^3/ul Absolute Basos (auto) 0.0 (0-0.2) 10^3/ul Absolute Nucleated RBC 0.0 10^3/ul Nucleated RBC % 0.1 Result Diagrams: 03/05/19 12:12 03/05/19 12:12 Lab Statement: Any lab studies that have been ordered have been reviewed, and results considered in the medical decision making process. - EKG 1534 Cardiac Rate: Bradycardia - 56 BPM EKG Rhythm: Sinus Bradycardia Summary of EKG Findings: Mild ST elevations in V3, V4, and V5. Consistent with benign early repolarization. No STEMI. ED physician has reviewed and interpreted this EKG. Re-Evaluation - Re-Evaluation First Eval Comment: d/w patient normal labs, EKG. Feeling better after toradol. Will f/u with our urologist or [place] for further w/u Abdominal Pain Male Course/Dx - Course Course Of Treatment: 58 y/o male with a history of prior urinary retention, hematuria followed by urology at [place], recent UTI presents with flank pain and lower abdominal pain. - Physical exam w/ well-appearing male, bilateral flank pain, no midline tenderness. Mild suprapubic tenderness. No fevers, labs evidence of infection, urinalysis with hematuria which is chronic. Normal ESR and CRP, don't suspect infectious process. Patient had a recent cellulitis and I&D of the left scrotum, no evidence of infection on exam. Reports chronic urinary retention, no new symptoms. - Regarding near syncopal events, patient was given IV fluids, EKG shows sinus yonas w benign early repol, troponin negative. Electrolytes within normal limits and stable hemoglobin. Differential includes vasovagal, dehydration, do not suspect cardiac process, PE or dissection. - Diagnoses Provider Diagnoses: Flank pain, Hematuria Discharge ED - Sign-Out/Discharge Documenting (check all that apply): Patient Departure - Discharge Plan Condition: Stable Disposition: HOME Prescriptions: Ketorolac TAB * [Toradol TAB *] 10 mg PO Q6H PRN 5 Days #20 tab PRN Reason: Pain - Moderate Patient Education Materials: Hematuria (ED), Flank Pain (ED) Referrals: No Primary Care Phys,NOPCP [Primary Care Provider] - Additional Instructions: You were seen in the emergency department for flank pain and concern for urinary retention. Your bladder scan did not show that you're retaining urine. Your urine showed blood in it. Please follow up with urology. If any studies were not completed at the time of discharge you will be called with the relevant results. Please follow up with your urologist in next 2-3 days and return to emergency department for worsening pain, fevers, severe back pain, numbness or weakness of your lower extremities, or concerning symptoms. It was a pleasure taking care of you today. - Billing Disposition and Condition Condition: STABLE Disposition: Home - Attestation Statements Document Initiated by Radha: Yes Documenting Scribe: Audra Hooks Provider For Whom Radha is Documenting (Include Credential): Robbie Melgar MD Scribe Attestation: Audra Pelaez, scribed for Robbie Melgar MD on 03/05/19 at 1828. Scribe Documentation Reviewed: Yes Provider Attestation: The documentation as recorded by the Audra wilson accurately reflects the service I personally performed and the decisions made by , Robbie Melgar MD Status of Scribe Document: Viewed
[2019-03-05 12:43] LABS: Albumin 4.2 g/dL (3.2-5.2); Albumin/Globulin Ratio 1.6 (1-3); BUN/Creatinine Ratio 15.5 (8-20); EGFR African American 96.9 (>60); EGFR Non-African American 80.1 (>60); Globulin 2.6 g/dL (2-4); Potassium 3.9 mmol/L (3.5-5.0); Total Bilirubin 0.9 mg/dL (0.2-1.0); Total Protein 6.8 g/dL (6.4-8.9)
[2019-03-05 13:19] LABS: HIV 4th Generation Nonreactive (Nonreactive)
[2019-03-05] MEDS ORDERED: NS 0.9% 1000 ML** 1,000 ML IV ONE (13:22)
[2019-03-05 13:23] LABS: C Reactive Protein 1.08 mg/L (<8.01)
[2019-03-05 14:18] LABS: Urine Appearance Clear; Urine Bilirubin Negative (Negative); Urine Blood 2+ (Negative); Urine Color Yellow; Urine Glucose Negative (Negative); Urine Ketones Trace (Negative); Urine Nitrite Negative (Negative); Urine Protein Negative (Negative); Urine Specific Gravity 1.027 (1.010-1.030); Urine Urobilinogen Negative (Negative)
[2019-03-05 14:22] LABS: Urine Bacteria Absent (Absent); Urine Red Blood Cell 3+(>10/hpf) (Absent); Urine Squamous Epithelial Cell Present (Absent); Urine White Blood Cell Trace(0-5/hpf) (Absent)
[2019-03-05 14:28] LABS: Erythrocyte Sed Rate 1 mm/Hr (0-19)
[2019-03-05] MEDS ORDERED: Ketorolac INJ* 30 MG/ML 1 ML VIAL IV ONE (14:53)
[2019-03-05 16:40] VITALS: BP 134/87
== END 2019-03-05 16:34 | disposition home or self-care (01) ==
LOC: ED 11:30
DX: R10.31 Right lower quadrant pain (principal); R10.32 Left lower quadrant pain; R31.9 Hematuria, unspecified; F17.210 Nicotine dependence, cigarettes, uncomplicated
CPT/HCPCS: 36415; 80053; 81003; 81015; 84484; 85025; 85652; 86140; 87086; 87389; 93005; 96361; 96374; 99282; J1885

== ENCOUNTER 2019-05-25 08:08 | Emergency (ER) | payer OTHER ==
[2019-05-25] MEDS ORDERED: Ketorolac *IM* INJ* 60 MG/2 ML VIAL IM ONE (08:37)
--- NOTE | 2019-05-25 08:41 | ED ---
Back Pain - HPI Summary HPI Summary: Pt. is a 58 y.o male who presents to the ER for low back pain. Pt. notes hx of left low back pain. Pt. notes hx of flank pain and hematuria. No hx of kidney stone. Pt. notes he was lifting heavy bags of concrete this week, otherwise denies falls. Hx of drug use. Pt. currently on suboxone. Pt. denies drug use/IV drug use. Pt. denies fever, chills, N/V, abd. pain, dysuria, cp, sob. Pt. notes pain radiates into left leg. Denies numbness/tingling, denies loss of bowel or bladder incontinence or retention. Sxs are mild in severity. Movement makes sxs worse. Rest improves pain. - History of Current Complaint Chief Complaint: EDBackInjuryPain Stated Complaint: RIGHT SIDE PAIN PER PT Time Seen by Provider: 05/25/19 08:23 Hx Obtained From: Patient Pain Intensity: 8 - Allergies/Home Medications Allergies/Adverse Reactions: Allergies Allergy/AdvReac Type Severity Reaction Status Date / Time No Known Allergies Allergy Verified 05/25/19 08:12 Home Medications: Home Medications NK [No Home Medications Reported] 05/25/19 [History Confirmed 05/25/19] PMH/Surg Hx/FS Hx/Imm Hx Previously Healthy: Yes Endocrine/Hematology History: Denies: Hx Anticoagulant Therapy, Hx Diabetes, Hx Thyroid Disease Cardiovascular History: Denies: Hx Hypertension Respiratory History: Reports: Hx Asthma Denies: Hx Chronic Obstructive Pulmonary Disease (COPD) GI History: Denies: Hx Ulcer History: Reports: Other Problems/Disorders - hematuria, kidney pain Denies: Hx Renal Disease Sensory History: Denies: Hx Eye Prosthesis, Hx Legally Blind, Hx Deafness Opthamlomology History: Denies: Hx Eye Prosthesis, Hx Legally Blind Neurological History: Denies: Hx Dementia Psychiatric History: Reports: Hx Substance Abuse - Surgical History Surgery Procedure, Year, and Place: hemorrhoidectomy Infectious Disease History: No Infectious Disease History: Denies: Hx Hepatitis, Hx Human Immunodeficiency Virus (HIV), Traveled Outside the [place] in Last 30 Days - Family History Known Family History: Positive: Other - Colon cancer - father , Non-Contributory - Social History Occupation: Unemployed Lives: With Family Alcohol Use: Rare Alcohol Amount: sober for 15mo's Hx Substance Use: Yes Substance Use Type: Reports: Heroin Substance Use Comment - Amount & Last Used: Pt denies Hx Tobacco Use: Yes Smoking Status (MU): Current Some Day Smoker Type: Cigarettes Have You Smoked in the Last Year: No Review of Systems Constitutional: Negative Negative: Fever, Chills Cardiovascular: Negative Negative: Palpitations, Chest Pain Respiratory: Negative Negative: Shortness Of Breath, Cough Gastrointestinal: Negative Genitourinary: Negative Positive: Other - low back pain Skin: Negative Neurological/Mental Status: Negative Negative: Weakness, Paresthesia, Numbness All Other Systems Reviewed And Are Negative: Yes Physical Exam Triage Information Reviewed: Yes Vital Signs On Initial Exam: Initial Vitals Temp Pulse Resp BP Pulse Ox 99.5 F 61 15 168/90 97 05/25/19 08:10 05/25/19 08:10 05/25/19 08:10 05/25/19 08:10 05/25/19 08:10 Vital Signs Reviewed: Yes Appearance: Positive: Well-Appearing - Pt. sitting up in bed in NAD. Skin: Positive: Warm, Dry Head/Face: Positive: Normal Head/Face Inspection Eyes: Positive: Normal, EOMI Neck: Positive: Supple Respiratory/Lung Sounds: Positive: Clear to Auscultation, Breath Sounds Present Cardiovascular: Positive: Normal, RRR Musculoskeletal: Positive: Normal, Strength/ROM Intact, Other - No midline tenderness. Pain over left SI joint. 5/5 strength in bilateral LEs with flexion and dorsiflexion. Positive straight leg on left. Neurological: Positive: Normal, CN Intact II-III Psychiatric: Positive: Affect/Mood Appropriate Procedures - Sedation Patient Received Moderate/Deep Sedation with Procedure: No Diagnostics - Vital Signs Vital Signs Temp Pulse Resp BP Pulse Ox 05/25/19 08:10 99.5 F 61 15 168/90 97 - Laboratory Lab Statement: Any lab studies that have been ordered have been reviewed, and results considered in the medical decision making process. Back Pain Course/Dx - Course Course Of Treatment: Pt. with ongoing low back pain. Afebrile. NO neurodeficits or evidence of cauda equina syndrome. Pt given a dose of IM toradol. He already has rx for flexeril and motrin. Will dc to f.u with PCP as soon as possible. Return precautions given. Pt. understands and agrees with plan. - Diagnoses Differential Diagnosis/HQI/PQRI: Positive: Arthritis, Herniated Disc, Strain, Sprain Provider Diagnoses: Back pain Discharge ED - Sign-Out/Discharge Documenting (check all that apply): Patient Departure - Discharge Plan Condition: Good Disposition: HOME Patient Education Materials: Back Pain (ED) Referrals: Fausto Gonzáles MD [Primary Care Provider] - Additional Instructions: Call your PCP today for close follow up appointment Take home medications as directed Apply warm compresses Return to ER for fever, leg numbness/weakness, loss of bowel or bladder function , or if concerned - Billing Disposition and Condition Condition: GOOD Disposition: Home - Attestation Statements Provider Attestation: I was available for consultation for this patient. I did not evaluate the patient or participate in any medical decision making or disposition decisions unless I am specifically named in the chart as having consulted on the patient. If I have consulted on the patient, please see my own ED note on the patient encounter. Robbie Melgar MD
[2019-05-25 09:55] VITALS: BP 136/90
== END 2019-05-25 09:53 | disposition home or self-care (01) ==
LOC: ED 08:08
DX: M54.5 Low back pain (principal); J45.909 Unspecified asthma, uncomplicated; F17.210 Nicotine dependence, cigarettes, uncomplicated
CPT/HCPCS: 96372; 99283; J1885

== ENCOUNTER 2021-11-23 00:34 | Inpatient (IN) ==
[2021-11-23] MEDS ORDERED: Iodixanol (CONTRAST) 320 MG/ML 100 ML SDV IV ONE (00:57)
[2021-11-23 01:02] LABS: ABS Basophils 0.1 10^3/ul (0-0.2); ABS Eosinophils 0.7 10^3/ul (0-0.6); ABS Lymphocytes 1.2 10^3/ul (1.0-4.8); ABS Monocytes 0.6 10^3/ul (0-0.8); ABS Neutrophils 2.7 10^3/ul (1.5-7.7); Eosinophil % 12.8 %; Hematocrit 34 % (42-52); Hemoglobin 10.9 g/dL (14.0-18.0); Lymphocyte % 22.3 %; Mean Corpuscular HGB Conc 32 g/dL (31-36); Mean Corpuscular Hemoglobin 30 pg (27-31); Mean Corpuscular Volume 93 fL (80-94); Mean Platelet Volume 6.6 fL (7.4-10.4); Nucleated Red Blood Cells % 0.1; Platelet Count 259 10^3/uL (150-450); Red Blood Count 3.66 10^6 /uL (4.18-5.48); Red Cell Distribution Width 14 % (10-15); White Blood Count 5.2 10^3/uL (3.5-10.8)
[2021-11-23 01:13] LABS: Activated Partial Thrombo Time 35.8 seconds (26.0-38.0); INR 1.21 (0.89-1.11)
[2021-11-23 01:35] LABS: Albumin 3.4 g/dL (3.2-5.2); Albumin/Globulin Ratio 1.6 (1-3); Calcium 8.4 mg/dL (8.6-10.3); Globulin 2.1 g/dL (2-4); HDL Cholesterol 37.3 mg/dL; Potassium 4.3 mmol/L (3.5-5.0); Total Bilirubin 0.3 mg/dL (0.2-1.0); Total Protein 5.5 g/dL (6.4-8.9); eGFR CKD-EPI 99.7 (>60)
[2021-11-23] MEDS ORDERED: NS 0.9% 1000 ml BAG 1,000 ML IV SCH (02:30)
[2021-11-23 03:09] LABS: Ferritin 88.2 ng/mL (24-336)
[2021-11-23 03:25] LABS: Urine Appearance Clear; Urine Bilirubin Negative (Negative); Urine Color Yellow; Urine Glucose Negative (Negative); Urine Ketones Negative (Negative)
[2021-11-23 03:26] LABS: Urine Blood Trace (Intact) (Negative); Urine Nitrite Negative (Negative); Urine Protein Negative (Negative); Urine Urobilinogen 0.2 (Negative) (Negative); Urine pH 6.5 (5.0-9.0)
[2021-11-23 03:40] LABS: Urine Bacteria Absent (Absent); Urine Red Blood Cell 1+(3-5/hpf) (Absent); Urine Sperm Present (Absent); Urine Squamous Epithelial Cell Present (Absent); Urine White Blood Cell Trace(0-5/hpf) (Absent)
[2021-11-23 09:33] LABS: Hematocrit 38 % (42-52); Hemoglobin 12.1 g/dL (14.0-18.0)
[2021-11-23] MEDS ORDERED: Lorazepam PYXIS KEY PRN (13:20)
[2021-11-23] MEDS ORDERED: LORazepam 2 mg VIAL 1 ml IV PUSH ONE (13:20)
[2021-11-23 19:03] LABS: Folate 14.33 ng/mL (5.90-24.80)
[2021-11-24 00:56] LABS: Calcium 8.4 mg/dL (8.6-10.3); Magnesium 1.9 mg/dL (1.9-2.7); Potassium 4.4 mmol/L (3.5-5.0); eGFR CKD-EPI 94.6 (>60)
[2021-11-24 06:00] LABS: ABS Eosinophils 0.3 10^3/ul (0-0.6); ABS Lymphocytes 0.9 10^3/ul (1.0-4.8); ABS Monocytes 0.5 10^3/ul (0-0.8); ABS Neutrophils 3.1 10^3/ul (1.5-7.7); Eosinophil % 6.9 %; Hematocrit 40 % (42-52); Hemoglobin 13.4 g/dL (14.0-18.0); Lymphocyte % 18.8 %; Mean Corpuscular HGB Conc 34 g/dL (31-36); Mean Corpuscular Hemoglobin 31 pg (27-31); Mean Corpuscular Volume 93 fL (80-94); Mean Platelet Volume 7.3 fL (7.4-10.4); Platelet Count 290 10^3/uL (150-450); Red Blood Count 4.28 10^6 /uL (4.18-5.48); Red Cell Distribution Width 14 % (10-15)
[2021-11-24 06:39] LABS: Calcium 8.7 mg/dL (8.6-10.3); Potassium 4.3 mmol/L (3.5-5.0); eGFR CKD-EPI 99.4 (>60)
[2021-11-24] MEDS ORDERED: diazePAM INJ CARPUJECT 5 MG/ML SYRINGE IV PRN (17:35)
[2021-11-25 08:52] VITALS: BP 131/82
[2021-11-25] MEDS ORDERED: Aspirin EC 81 mg TAB.EC (enteric coated) PO SCH (10:00)
== END 2021-11-25 11:30 | disposition home or self-care (01) | DRG 58 ==
LOC: ED 00:34 → EDHOLD 02:17 → MEDTELE 16:30
PROVIDERS: ADMIT Internal Medicine; ATTEND Internal Medicine